=== PATIENT | female | born 1990 | race Caucasian/White ===

== ENCOUNTER 2020-11-21 07:28 | Emergency (ER) | payer OTHER, SELFPAY ==
--- NOTE | ~2020-11-21 | CT_ITS ---
EXAMINATION: CT abdomen pelvis w con DATE: 11/21/2020 10:47 INDICATION: Abdomen pain TECHNIQUE: Computed tomography (CT) of the abdomen and pelvis was performed with 100 cc Omnipaque 350 intravenous contrast. The dose-length product was 502.38 mGy-cm. Automated exposure control and iter ative reconstruction technique were employed. COMPARISON: CT dated 02/04/2018. FINDINGS: Lung bases unremarkable. Heart size normal. No significant pleural or pericardial effusion. Status post cholecystectomy. The liver, spleen, pancreas, adrenal glands and kidneys are unremarkable . Small fat-containing umbilical hernia. There is a tampon in the vagina. Small amount of free fluid in the pelvis. Nonobstructive bowel gas pattern. No acute osseous abnormality. No free air. IMPRESSION: 1. No acute abdominal abnormality. Reviewed, dictated and finalized at location A. [employer]
[2020-11-21 07:33] VITALS: BP 132/82; PULSE 62; RESP 18; TEMP 36.3; O2SAT 98
--- NOTE | 2020-11-21 08:01 | ED.GENADULT ---
HPI - General Adult General Chief complaint: Abdominal Pain Stated complaint: period cramping Time Seen by Provider: 11/21/20 07:42 Source: patient History of Present Illness HPI narrative: Patient is a 30 y/o female complaining of lower abdominal pain starting yesterday. She describes her pain as sharp and rates it as 9/10. There is no pain radiation. She took Tylenol, which did not help. She started her menses 2 days ago. She also has some vomiting and diarrhea. She denies fever and dysuria. Related Data Allergies Allergy/AdvReac Type Severity Reaction Status Date / Time methylprednisolone AdvReac Irritable Verified 11/21/20 07:37 Review of Systems Constitutional: Constitutional: Denies chills, Denies fever(s), Denies headache(s) and Denies weakness Eyes: Eyes: Denies blurry vision ENT: Denies headache(s) and Denies neck pain Cardiovascular: Cardiovascular: Denies chest pain and Denies dyspnea Respiratory: Respiratory: Denies cough and Denies dyspnea Gastrointestinal: Gastrointestinal: Reports as per HPI, Reports abdominal pain, Denies diarrhea, Reports nausea and Reports vomiting Genitourinary: Genitourinary: Reports as per HPI, Reports abnormal vaginal bleeding, Denies hematuria and Denies dysuria Musculoskeletal: Musculoskeletal: Denies back pain and Denies neck pain Neurologic: Denies headache(s) and Denies weakness [facility] Family History Family History Father Family history of diabetes mellitus in first degree relative Grandparent Diabetes mellitus Social History Social History Smoking status: Never smoker Alcohol intake: never Gender identity (if verbalized by the patient): Female Exam Const: General: no acute distress and well developed Orientation/consciousness: oriented to person, oriented to place, oriented to time and patient oriented x3 HENMT: Head: normocephalic Ears: external ears normal General nose exam: Normal external nose present Eyes: General: appearance normal, both eyes and all related structures Conjunctivae: conjunctivae normal Neck: Neck: normal visual inspection and full ROM Chest: Chest palpation & inspection: normal inspection of the chest and no tenderness Resp: Effort & Inspection: normal respiratory effort Auscultation: clear to auscultation bilaterally Cardio: Rate: regular rate Rhythm: regular rhythm GI: GI Palp: No abdominal tenderness and Yes Soft to palpation Skin: General skin exam: normal color and turgor normal Neuro: General: oriented to person, oriented to place, oriented to time and patient oriented x3 Cognition (Neuro): normal cognition Extrem: General: normal to inspection, full ROM and no pedal edema Psych: Appearance: grossly normal Mental Status: mental status grossly normal Affect: normal affect Course Vital Signs Vital signs: Vital Signs Temperature 36.3 C L 11/21/20 07:33 Pulse Rate 62 11/21/20 07:33 Respiratory Rate 18 11/21/20 07:33 Blood Pressure 132/82 11/21/20 07:33 Pulse Oximetry 98 11/21/20 07:33 Temperature 36.3 C L 11/21/20 07:33 Pulse Rate 62 11/21/20 07:33 Respiratory Rate 18 11/21/20 07:33 Blood Pressure 132/82 11/21/20 07:33 Pulse Oximetry 98 11/21/20 07:33 Medical Decision Making Vital Signs Vital Signs: Vital Signs Temperature 36.3 C L 11/21/20 07:33 Pulse Rate 62 11/21/20 07:33 Respiratory Rate 18 11/21/20 07:33 Blood Pressure 132/82 11/21/20 07:33 Pulse Oximetry 98 11/21/20 07:33 Temperature 36.3 C L 11/21/20 07:33 Pulse Rate 62 11/21/20 07:33 Respiratory Rate 18 11/21/20 07:33 Blood Pressure 132/82 11/21/20 07:33 Pulse Oximetry 98 11/21/20 07:33 Lab Data Result diagrams: 11/21/20 08:09 11/21/20 08:56 Labs: Lab Results 11/21/20 11/21/20 11/21/20 Range/Units 08:09 08:31 08:56 WBC 11.7 H
[2020-11-21] MEDS: traMADol HCL (*CRX) 50 MG TABLET PO (08:07)
[2020-11-21 08:24] LABS: Basophils Percent Auto 0.3 % (0.2-1.2); Eosinophils Absolute Auto 0.1 K/mm3 (0-0.3); Hematocrit 39.2 % (37.0-47.0); Hemoglobin 13.2 g/dL (12.0-15.0); Immature Granulocyte Absolute 0.04 K/mm3 (0.00-0.031); Immature Granulocyte Percent A 0.3 % (0-0.5); Lymphocytes Absolute Auto 2.14 K/mm3 (0.9-3.2); Lymphocytes Percent Auto 18.3 % (18.3-44.2); Mean Corpuscular HGB Conc 33.7 g/dl (32-36); Mean Corpuscular Hemoglobin 29.3 pg (26-34); Mean Corpuscular Volume 86.9 fl (80-100); Mean Platelet Volume 8.6 fl (7.4-10.4); Monocytes Absolute Auto 0.5 K/mm3 (0.1-0.6); Monocytes Percent Auto 4.3 % (2.6-8.5); Neutrophils Absolute Auto 8.8 K/mm3 (1.3-6.7); Neutrophils Percent Auto 75.8 % (45.5-73.1); Platelet Count Result 304 k/mm3 (150-375); Red Blood Count 4.51 M/mm3 (4.2-5.4); Red Cell Distribution Width 11.9 % (11.5-14.5); White Blood Count 11.7 K/mm3 (4.5-10.0)
[2020-11-21 08:39] LABS: Add Urine Microscopic? YES; Appearance Urine Clear (Clear); Bilirubin Urine Negative (Negative); Blood Urine 3+ (Negative); Color Urine Yellow (Yellow); Glucose Urine UA Negative (Negative); Ketones Urine Negative (Negative); Leukocyte Esterase Ur Negative LEU/UL (Negative); Mucus Urine Few /lpf; Nitrate Urine Negative (Negative); Protein Urine 1+ mg/dL (Negative); RBC Urine 51-75 /hpf (0-2); Squamous Epithelial Cell Urine Rare /hpf (Few); Urobilinogen Urine Negative mg/dL (<2.0); WBC Urine 0-3 /hpf
[2020-11-21 08:47] LABS: Specific Grav Ur 1.031 (1.001-1.035)
[2020-11-21 09:38] LABS: Anion Gap 8 mmol/L (8-16); Blood Urea Nitrogen 13 mg/dL (7-17); Calcium 8.9 mg/dL (8.4-10.2); Carbon Dioxide 26 mmol/L (22-30); Chloride 104 mmol/L (98-107); Estimated CRCL calculation 100 ml/min; Estimated Glomerular Filt Rate > 60; Glucose 119 mg/dL (65-105); Potassium 3.6 mmol/L (3.4-5.0); Sodium 138 mmol/L (137-145)
[2020-11-21] MEDS: SODIUM CHLORIDE 0.9% IV 1,000 ML 999 ML IV CONT (09:38)
[2020-11-21] MEDS: ONDANSETRON INJ 4 MG/2 ML VIAL IV PUSH (09:38)
[2020-11-21] MEDS: KETOROLAC 30 MG/ML VIAL (*BKC) IV PUSH (09:38)
== END 2020-11-21 12:25 | disposition home or self-care (01) ==
PROVIDERS: Emergency Provider Emergency Medicine
DX: K52.9 Noninfective gastroenteritis and colitis, unspecified (principal); N94.6 Dysmenorrhea, unspecified
CPT/HCPCS: 36415; 74177; 80048; 81001; 81025; 85025; 96361; 96374; 96375; 99284; A9270; J1885; J2405; J7030; Q9967

== ENCOUNTER → 2021-04-05 14:28 | Outpatient (CLI) | payer OTHER, SELFPAY ==
--- NOTE | ~2021-04-05 | MR_ITS ---
EXAMINATION: MR pituitary wo/w con DATE: 04/05/2021 15:35 INDICATION: Hyperprolactinemia. TECHNIQUE: Magnetic resonance imaging (MRI) of the brain and brainstem was performed without with 15 mL MultiHance intravenous contrast. Whole-brain sequences included sagittal T1-weighted FSE, axial di ffusion-weighted FS EPI, axial T2*-weighted GRE, axial T2-weighted FLAIR Propeller, and axial T2-weig hted Propeller. Small iolwp-ek-bpix sequences included sagittal and coronal T1-weighted FSE centered at the pituitary. Postcontrast sequences included small ebjzy-xd-ienz coronal T1-weighted FSE in a t kelly course and sagittal T1-weighted FSE and whole-brain axial T1-weighted FSE. Apparent diffusion boone fficient (ADC) maps were created. COMPARISON: Head CT 07/30/2014 FINDINGS: The pituitary is normal in size with height of 5 mm and concave superior margin. There is n o intracranial hemorrhage, acute infarction, or abnormal intracranial mass lesion. The ventricles are normal in size. The paranasal sinuses are clear. There is a trace left mastoid effusion. The orbits are normal. IMPRESSION: 1. Normal brain. Normal pituitary. Reviewed, dictated and finalized at location A.
[2021-04-05 14:58] LABS: Estimated Glomerular Filt Rate > 60
== END ==
PROVIDERS: Visit Provider Obstetrics & Gynecology
DX: R94.7 Abnormal results of other endocrine function studies (principal)
CPT/HCPCS: 70553; A9577

== ENCOUNTER 2021-07-14 07:51 | Emergency (ER) | payer OTHER, SELFPAY ==
--- NOTE | ~2021-07-14 | US_ITS ---
EXAMINATION: US OB <= 14 weeks fetus DATE: 07/14/2021 11:59 INDICATION: Vaginal bleeding during first trimester TECHNIQUE: Real-time pelvic transabdominal and transvaginal ultrasound was performed. COMPARISON: None. FINDINGS: The uterus measures 14.0 x 7.3 x 8.8 cm. There is an intrauterine gestational sac. There i s a 2.8 x 1.5 x 1.3 cm hypoechoic area adjacent to the gestational sac. There is a 4.6 x 3.3 x 5.2 cm isoechoic area of the posterior uterine body, likely an intramural fibroid. A yolk sac is identified . heart motion is identified measuring 173 beats per minute (bpm) by M-mode Doppler. The crown rump length measures 2.5 cm , which correlates with an estimated gestational age of 9 weeks and 2 day(s) (+/-) 6 day(s). The ovaries are not visualized however no adnexal abnormality is seen. There is no free fluid in the pelvis. IMPRESSION: 1. Live intrauterine with an estimated gestational age of 9 weeks and 2 day(s) (+/-) 6 day( s) and an estimated delivery date of 02/14/2022. 2. Small subchronic hematoma. Reviewed, dictated and finalized at location B. IMPRESSION: 1. Live intrauterine with an estimated gestational age of 9 weeks and 2 day(s) (+/-) 6 day(s) and an estimated delivery date of 02/14/2022. 2. Small subchronic hematoma.
[2021-07-14 08:06] VITALS: BP 121/80; PULSE 64; RESP 16; TEMP 36.9; O2SAT 100
[2021-07-14 09:09] LABS: Basophils Percent Auto 0.4 % (0.2-1.2); Eosinophils Absolute Auto 0.1 K/mm3 (0-0.3); Eosinophils Percent Auto 0.9 % (0-4.4); Hematocrit 38.9 % (37.0-47.0); Hemoglobin 13.2 g/dL (12.0-15.0); Immature Granulocyte Absolute 0.03 K/mm3 (0.00-0.031); Immature Granulocyte Percent A 0.3 % (0-0.5); Lymphocytes Absolute Auto 1.74 K/mm3 (0.9-3.2); Lymphocytes Percent Auto 17.3 % (18.3-44.2); Mean Corpuscular HGB Conc 33.9 g/dl (32-36); Mean Corpuscular Hemoglobin 29.7 pg (26-34); Mean Corpuscular Volume 87.4 fl (80-100); Mean Platelet Volume 8.1 fl (7.4-10.4); Monocytes Absolute Auto 0.5 K/mm3 (0.1-0.6); Monocytes Percent Auto 4.9 % (2.6-8.5); Neutrophils Absolute Auto 7.7 K/mm3 (1.3-6.7); Neutrophils Percent Auto 76.2 % (45.5-73.1); Platelet Count Result 264 k/mm3 (150-375); Red Blood Count 4.45 M/mm3 (4.2-5.4); Red Cell Distribution Width 12.1 % (11.5-14.5); White Blood Count 10.1 K/mm3 (4.5-10.0)
--- NOTE | 2021-07-14 12:37 | ED.GENADULT ---
HPI - General Adult General Chief complaint: Vaginal Bleeding Stated complaint: 9 weeks spotting and cramping Time Seen by Provider: 07/14/21 08:50 History of Present Illness HPI narrative: Patient is a 30-year-old female who presents ER with concern for vaginal bleeding. She woke up this morning and wiped herself after using the bathroom and noticed some brown discharge that she thinks is blood. No bright red bleeding. Has had a little bit of abdominal cramping for last couple days. No fevers or chills or sweats. G1, P0 at [address] Shirley. Had an ultrasound demonstrating IUP last week. Unknown blood type. Related Data Allergies Allergy/AdvReac Type Severity Reaction Status Date / Time methylprednisolone AdvReac Irritable Verified 07/14/21 08:11 Review of Systems Review of Systems: All systems reviewed & are unremarkable except as noted in HPI and below Constitutional: Constitutional: Denies chills and Denies fever(s) ENT: Denies nasal congestion and Denies sore throat Gastrointestinal: Gastrointestinal: Reports abdominal pain, Denies diarrhea, Denies nausea and Denies vomiting Genitourinary: Genitourinary: Reports abnormal vaginal bleeding, Denies nocturia and Denies dysuria Musculoskeletal: Musculoskeletal: Denies myalgias and Denies muscle cramps PMFSH Past Medical History Medical History (Updated 07/14/21 @ 13:05 by Filemon Reaves MD) Healthy female adult Surgical History Surgical History (Updated 07/14/21 @ 13:05 by Filemon Reaves MD) No history of previous surgery Family History Family History Father Family history of diabetes mellitus in first degree relative Grandparent Diabetes mellitus Social History Social History Smoking status: Never smoker Alcohol intake: never Gender identity (if verbalized by the patient): Female Exam Narrative: GENERAL: Well-appearing, well-nourished, and in no acute distress. HEAD: Normocephalic, atraumatic. CHEST: Clear to auscultation. No respiratory distress. HEART: Regular rate and rhythm. Normal peripheral pulses. ABDOMEN: Soft, nontender, nondistended. : Normal external genitalia, physiologic discharge with old blood within the vaginal vault, cervix closed without active bleeding. EXTREMITIES: Normal range of motion. No edema. SKIN: Warm, dry, no rash. NEURO: Alert and oriented x3. PSYCH: Normal mood and affect. Course Course Emergency Course: Discussed case with Dr. Ivory who is on-call for Dr. Shirley. Bleeding precautions and close follow-up. Patient verbalized understanding of diagnosis and treatment plan. Vital Signs Vital signs: Vital Signs Temperature 98.4 F 07/14/21 08:06 Pulse Rate 64 07/14/21 08:06 Respiratory Rate 16 07/14/21 08:06 Blood Pressure 121/80 07/14/21 08:06 Pulse Oximetry 100 07/14/21 08:06 Temperature 98.4 F 07/14/21 08:06 Pulse Rate 64 07/14/21 08:06 Respiratory Rate 16 07/14/21 08:06 Blood Pressure 121/80 07/14/21 08:06 Pulse Oximetry 100 07/14/21 08:06 Medical Decision Making Vital Signs Vital Signs: Vital Signs Temperature 98.4 F 07/14/21 08:06 Pulse Rate 64 07/14/21 08:06 Respiratory Rate 16 07/14/21 08:06 Blood Pressure 121/80 07/14/21 08:06 Pulse Oximetry 100 07/14/21 08:06 Temperature 98.4 F 07/14/21 08:06 Pulse Rate 64 07/14/21 08:06 Respiratory Rate 16 07/14/21 08:06 Blood Pressure 121/80 07/14/21 08:06 Pulse Oximetry 100 07/14/21 08:06 Lab Data Result diagrams: 07/14/21 08:57 Labs: Lab Results 07/14/21 07/14/21 07/14/21 Range/Units 08:57 08:57 08:58 WBC 10.1 H (4.5-10.0) K/mm3 RBC 4.45 (4.2-5.4) M/mm3 Hgb 13.2 (12.0-15.0) g/dL Hct 38.9 (37.0-47.0) % MCV 87.4 (80-100) fl MCH 29.7 (26-34) pg MCHC 33.9 (32-36) g/dl RDW 1
[2021-07-14 15:00] VITALS: BP 121/70; PULSE 70; RESP 18; O2SAT 98
== END 2021-07-14 15:01 | disposition home or self-care (01) ==
PROVIDERS: Emergency Provider Emergency Medicine
DX: O46.8X1 Other antepartum hemorrhage, first trimester (principal); Z3A.09 9 weeks gestation of pregnancy
CPT/HCPCS: 36415; 76801; 84702; 85025; 85461; 99284

== ENCOUNTER 2021-12-17 06:58 | Outpatient (CLI) | payer OTHER, MEDICAID, SELFPAY ==
[2021-12-17 08:17] LABS: Basophils Percent Auto 0.2 % (0.2-1.2); Eosinophils Absolute Auto 0.1 K/mm3 (0-0.3); Eosinophils Percent Auto 0.8 % (0-4.4); Hematocrit 33.1 % (37.0-47.0); Hemoglobin 11.3 g/dL (12.0-15.0); Immature Granulocyte Absolute 0.07 K/mm3 (0.00-0.031); Immature Granulocyte Percent A 0.5 % (0-0.5); Lymphocytes Absolute Auto 1.71 K/mm3 (0.9-3.2); Lymphocytes Percent Auto 12.9 % (18.3-44.2); Mean Corpuscular HGB Conc 34.1 g/dl (32-36); Mean Corpuscular Hemoglobin 29.6 pg (26-34); Mean Corpuscular Volume 86.6 fl (80-100); Mean Platelet Volume 8.5 fl (7.4-10.4); Monocytes Absolute Auto 0.7 K/mm3 (0.1-0.6); Monocytes Percent Auto 5.5 % (2.6-8.5); Neutrophils Absolute Auto 10.6 K/mm3 (1.3-6.7); Neutrophils Percent Auto 80.1 % (45.5-73.1); Platelet Count Result 247 k/mm3 (150-375); Red Blood Count 3.82 M/mm3 (4.2-5.4); Red Cell Distribution Width 11.9 % (11.5-14.5); White Blood Count 13.2 K/mm3 (4.5-10.0)
[2021-12-17 08:27] LABS: Glucose 1 Hour PP 50gm Dose 155 mg/dL
[2021-12-17 09:08] LABS: HIV 1/2 Ab P24 Ag Result Negative (Negative)
== END 2021-12-17 06:59 | disposition home or self-care (01) ==
LOC: ANHLAB 07:00
PROVIDERS: Visit Provider Obstetrics & Gynecology
DX: Z34.90 Encounter for supervision of normal pregnancy, unspecified, unspecified trimester (principal); Z3A.00 Weeks of gestation of pregnancy not specified
CPT/HCPCS: 36415; 82947; 85025; 86703; G0432

== ENCOUNTER 2021-12-27 10:29 | Outpatient (CLI) | payer OTHER, MEDICAID, SELFPAY ==
[2021-12-27 10:56] LABS: Glucose Fasting Gestational 81 mg/dL (>/=95)
[2021-12-27 12:59] LABS: Glucose 1 Hour Gest 150 mg/dL (>/=180)
[2021-12-27 13:51] LABS: Glucose 2 Hour Gest 119 mg/dL (>/= 155)
[2021-12-27 14:54] LABS: Glucose 3 Hour Gest 126 mg/dL (>/=140)
== END 2021-12-27 10:30 | disposition home or self-care (01) ==
LOC: ANHLAB 10:31
PROVIDERS: Visit Provider Obstetrics & Gynecology
DX: R73.09 Other abnormal glucose (principal)
CPT/HCPCS: 36415; 82951; 82952

== ENCOUNTER 2022-01-18 15:56 | Outpatient (CLI) | payer OTHER, MEDICAID, SELFPAY ==
--- NOTE | ~2022-01-18 | US_ITS ---
US OB limited w BPP DATE: 01/18/2022 17:35 INDICATION: Possible amniotic fluid leak. Assess JUAN PABLO. TECHNIQUE: Real-time imaging and Doppler analysis COMPARISON: 01/16/2022 obstetrical ultrasound Limited examination FINDINGS: Live borrego intrauterine gestation in longitudinal lie, vertex presentation. heart rate of 133 bpm. Anterior placenta. Amniotic fluid index measures 20.2 cm. (5th percentile JUAN PABLO 7.7 cm, 95th percentile JUAN PABLO: Is 24.9 cm.) BIOPHYSICAL PROFILE reported by carpet cleaning technician: breathin out of 2 movement: 2 out of 2 tone: 2 out of 2 Amniotic fluid pocket: 2 out of 2 Total score: 8 out of 8 IMPRESSION: Normal JUAN PABLO of 20.2 cm Normal biophysical profile score of 8 out of 8 Reviewed, dictated and finalized at Location A. Reviewed, dictated and finalized at location A.
[2022-01-18 17:17] VITALS: BMI 36.7
[2022-01-18 18:08] VITALS: BP 126/79; PULSE 80
== END 2022-01-18 18:08 | disposition home or self-care (01) ==
LOC: ANHOBOP 16:39 → ANHOBPP 16:40
PROVIDERS: Visit Provider Obstetrics & Gynecology
DX: O41.8X31 Other specified disorders of amniotic fluid and membranes, third trimester, fetus 1 (principal); Z3A.36 36 weeks gestation of pregnancy
CPT/HCPCS: 59025; 76815; 76819; 84112; 99199

== ENCOUNTER 2022-01-20 08:45 | Outpatient (CLI) | payer OTHER, MEDICAID, SELFPAY ==
[2022-01-20 09:01] VITALS: BP 126/82; PULSE 98
[2022-01-20 09:15] VITALS: BP 119/80; PULSE 75
[2022-01-20 09:27] VITALS: TEMP 36.9
[2022-01-20 09:30] VITALS: BP 119/80; BP 125/84; PULSE 76; PULSE 93
--- NOTE | 2022-01-20 10:06 | PM.OBTRLD ---
OB - Triage/Final Diagnosis Visit Information Comments/Additional reasons for admission: I have assessed the risk for this patient, Allyssa Russell, and determined that she would benefit from observation care. Evaluation Vital signs: Vital Signs - 24 hr 01/20/22 09:30 Pulse Rate 93 Blood Pressure [Left Arm] 119/80 Final Diagnosis (1) Vaginal discharge during : Code(s): O26.899 - Other specified related conditions, unspecified trimester; N89.8 - Other specified noninflammatory disorders of vagina Status: Acute
== END 2022-01-20 09:35 | disposition home or self-care (01) ==
LOC: ANHOBOP 08:49 → ANHOBPP 08:50
PROVIDERS: Visit Provider Obstetrics & Gynecology
DX: O26.899 Other specified pregnancy related conditions, unspecified trimester (principal); Z3A.00 Weeks of gestation of pregnancy not specified
CPT/HCPCS: 59025; 84112; 99199

== ENCOUNTER 2022-01-25 20:48 | Inpatient (IN) | payer OTHER, MEDICAID, SELFPAY ==
[2022-01-25] VITALS (36 sets, daily range): BP systolic 112–143; BP diastolic 66–92; PULSE 69–94; TEMP 37; O2SAT 97–100; BMI 37.3
--- OUTSIDE RECORDS SUMMARY | 2022-01-25 21:04 | XMS_ITS ---
:1990 Author Care Team Providers Name Role Phone Aneesh Shirley Primary Care Provider Unavailable Allergies Code Code System Name Reaction Severity Status Onset 8640 RxNorm Prednisone Dizziness ? Active ? Nausea ? Active ? Vomiting ? Active ? Medications Name Status Start Date Stop Date ? ? clomiphene citrate 50 mg tablet Completed ? 07/01/2021 dicyclomine 10 mg capsule Completed ? 2020 TAKE ONE CAPSULE BY MOUTH FOUR TIMES DAILY NEEDED famotidine 20 mg tablet Active ? Not avai lable Take 1 tablet every day by oral route. nitrofurantoin monohydrate/macrocrystals 100 mg capsule Complete d ? 03/11/2021 TK 1 C PO Q 12 H FOR 5 DAYS ondansetron HCl 4 mg tablet Completed ? 09/05 TAKE 1 TABLET BY MOUTH TWICE DAILY NEEDED prednisone 20 mg tablet Completed ? 03/11/20 21 triamcinolone acetonide 0.1 % topical cream Completed ? 03/11/2021 APPLY TO AFFECTED AREA BID Unisom (doxylamine) 25 mg tablet Completed ? 09/21/2021 Take 1 tablet every day by oral route at dinner. Vitamin B-6 25 mg tablet Completed ? 021 TAKE 1 TABLET BY MOUTH THREE TIMES DAILY Notes: vitamin D3/ pnv Problems Name Status Onset Date Source ? Active 07/12/2021 ? Procedures Date Name Performed by ? ? Cholecystectomy Information not avai labreno Notes: 2017
[2022-01-25] MEDS: LACTATED RINGERS 1,000 ML 125 ML IV CONT ×2 (21:30→22:29)
--- NOTE | 2022-01-25 21:45 | PM.IMHP ---
H&P: HPI History of Present Illness Date/Time: 01/25/22 21:21 Allyssa is a 31yo @ 37.2wks (TYREE 02/13/22) who presented to L&D with rupture of membranes, clear @ 1900. ROM+ was positive. She was found to be 3.5/90/-1 and trae ~ q3 minutes. She reported good movements. No vaginal bleeding. Her has been complicated by: - Elevated glucola; normal 3hr OGTT - Mild anemia on iron Chief Complaint: leakage of fluid Review of Systems Review of Systems: All systems reviewed & are unremarkable except as noted in HPI and below (HPI) [facility] Past Medical History Medical History Cholecystectomy planned Healthy female adult Surgical History Surgical History No history of previous surgery Family History Family History Father Family history of diabetes mellitus in first degree relative Grandparent Diabetes mellitus Grandparent Diabetes mellitus Grandparent Hypertension Skin cancer Grandparent No problems noted. Social History Social History Smoking status: Never smoker Second hand tobacco smoke exposure: No Alcohol intake: never Substance use: never Gender identity (if verbalized by the patient): Female Sexual Orientation (if Verbalized by the Patient): Straight or Heterosexual Spiritual care concerns: No Meds Home Medications and Allergies Home Medications Medication Instructions Recorded Confirmed Type PNV cmb#95-ferrous fumarate-FA 1 tablet PO DAILY 01/18/22 01/18/22 History [] ferrous sulfate 325 mg PO DAILY 01/18/22 01/18/22 History Allergies Allergy/AdvReac Type Severity Reaction Status Date / Time methylprednisolone AdvReac Irritable Verified 01/18/22 15:17 Exam Const: General: cooperative, healthy appearing, comfortable and in distress (with contractions) Resp: Effort & Inspection: normal respiratory effort Cardio: Rate: regular rate GI: GI Palp: No abdominal tenderness and Yes Soft to palpation : Other: FHT's: 140's/mod man/ + accels/ no decels - cat 1 TOCO: ctx's q 3min Cervix: 3.5/90/-1 Membranes: SROM, clear @ 1900 on 01/25/22 Presentation: cephalic Psych: Appearance: grossly normal Affect: normal affect Attitude: cooperative Assessment and Plan Assessment and plan (1) Active labor at term: Status: Acute (2) : Qualifiers: Weeks of gestation: 37 weeks Qualified Code(s): Z3A.37 - 37 weeks gestation of Code(s): Z34.90 - Encounter for supervision of normal , unspecified, unspecified trimester Status: Acute Additional Plan - Admit to L&D - Pitocin augmentation if no change in cervix over 4 hours or contractions space out - Continuous monitoring; currently reassuring - Anesthesia consult PRN pain - GBS negative
--- NOTE | 2022-01-25 21:46 | WPDHPUPDATE1 ---
History and Physical Update Update Date/Time: 01/25/22 21:46 History and Physical has been reviewed, including an updated exam of the patient. There are NO changes in the patient's condition. Risks, benefits, and alternatives have been discussed and questions answered. Patient agrees to proceed with procedure.
--- NOTE | 2022-01-25 21:53 | LDADM ---
This patient, Allyssa Russell, was admitted to Labor/Delivery/Recovery 106 on 01/25/22 at 20:48. Plans for labor, pain management and were discussed with patient. Patient/family oriented to hospital policies and general routines including ID bracelet, bed and alarms, visiting hours, pain management, procedures, bathroom and other care routines, personal items, smoking policy, room service/diet and guest tray routines, infant security routines, and visiting hours. Patient/Family are encouraged to report perceived risks to care and to ask questions if they do not understand what they are told or what they should do. See OBIX for further documentation.
[2022-01-25 21:55] LABS: Basophils Percent Auto 0.2 % (0.2-1.2); Eosinophils Absolute Auto 0.1 K/mm3 (0-0.3); Eosinophils Percent Auto 0.5 % (0-4.4); Hematocrit 34.1 % (37.0-47.0); Hemoglobin 11.4 g/dL (12.0-15.0); Immature Granulocyte Absolute 0.08 K/mm3 (0.00-0.031); Immature Granulocyte Percent A 0.7 % (0-0.5); Lymphocytes Absolute Auto 2.08 K/mm3 (0.9-3.2); Mean Corpuscular HGB Conc 33.4 g/dl (32-36); Mean Corpuscular Hemoglobin 28.4 pg (26-34); Mean Platelet Volume 9.1 fl (7.4-10.4); Monocytes Absolute Auto 0.6 K/mm3 (0.1-0.6); Monocytes Percent Auto 5.1 % (2.6-8.5); Neutrophils Absolute Auto 9.4 K/mm3 (1.3-6.7); Neutrophils Percent Auto 76.5 % (45.5-73.1); Platelet Count Result 279 k/mm3 (150-375); Red Blood Count 4.01 M/mm3 (4.2-5.4); Red Cell Distribution Width 13.1 % (11.5-14.5); White Blood Count 12.3 K/mm3 (4.5-10.0)
--- NOTE | 2022-01-25 22:29 | WPDANESEPP ---
Anes - Eval Pre Procedure Procedure: labor epidural Date/Time: 01/25/22 22:29 Surgeon: sherry Pre Op Diagnosis: Leaking fluid Patient Data Age: 31 Gender: F Height: 1.6 m Weight: 95.5 kg Last Vital Signs Temp 37.0 C 01/25/22 21:30 Pulse 70 01/25/22 22:16 BP 139/78 01/25/22 22:16 Pulse Ox 99 01/25/22 22:27 Allergies Allergy/AdvReac Type Severity Reaction Status Date / Time methylprednisolone AdvReac Irritable Verified 01/18/22 15:17 Home Medications Medication Instructions Recorded Confirmed Type PNV cmb#95-ferrous fumarate-FA 1 tablet PO DAILY 01/18/22 01/18/22 History [] ferrous sulfate 325 mg PO DAILY 01/18/22 01/18/22 History Laboratory Tests 01/25/22 01/25/22 21:47 21:47 WBC 12.3 K/mm3 H K/mm3 (4.5-10.0) RBC 4.01 M/mm3 L M/mm3 (4.2-5.4) Hgb 11.4 g/dL L g/dL (12.0-15.0) Hct 34.1 % L % (37.0-47.0) MCV 85.0 fl fl (80-100) MCH 28.4 pg pg (26-34) MCHC 33.4 g/dl g/dl (32-36) RDW 13.1 % % (11.5-14.5) Plt Count 279 k/mm3 k/mm3 (150-375) MPV 9.1 fl fl (7.4-10.4) Immature Gran % (Auto) 0.7 % H % (0-0.5) Neut % (Auto) 76.5 % H % (45.5-73.1) Lymph % (Auto) 17.0 % L % (18.3-44.2) Sequoyah % (Auto) 5.1 % % (2.6-8.5) Eos % (Auto) 0.5 % % (0-4.4) Baso % (Auto) 0.2 % % (0.2-1.2) Lymph # (Auto) 2.08 K/mm3 K/mm3 (0.9-3.2) Sequoyah # (Auto) 0.6 K/mm3 K/mm3 (0.1-0.6) Eos # (Auto) 0.1 K/mm3 K/mm3 (0-0.3) Baso # (Auto) 0.0 K/mm3 K/mm3 (0.0-0.1) Abs Immat Gran (auto) 0.08 K/mm3 H K/mm3 (0.00-0.031) Absolute Neuts (auto) 9.4 K/mm3 H K/mm3 (1.3-6.7) Absolute Nucleated RBC 0.0 K/mm3 K/mm3 (0.0-0.012) Nucleated RBC % 0.0 % % (0.0-0.2) RPR Pending Patient hx anesthesia problems: none Family hx anesthesia problems: none Results Review: All pre-operative results and documents have been reviewed as part of the pre-operative evaluation. [facility] Past Medical History Medical History Cholecystectomy planned Healthy female adult Surgical History Surgical History No history of previous surgery Family History Family History Father Family history of diabetes mellitus in first degree relative Grandparent Diabetes mellitus Grandparent Diabetes mellitus Grandparent Hypertension Skin cancer Grandparent No problems noted. Social History Social History Smoking status: Never smoker Second hand tobacco smoke exposure: No Alcohol intake: never Substance use: never Gender identity (if verbalized by the patient): Female Sexual Orientation (if Verbalized by the Patient): Straight or Heterosexual Spiritual care concerns: No Exam Day of Procedure 01/25/22 22:29
[2022-01-26] VITALS (141 sets, daily range): BP systolic 104–150; BP diastolic 56–95; PULSE 58–137; RESP 16–20; TEMP 36.5–37.6; O2SAT 96–100
[2022-01-26] MEDS: OXYTOCIN 30 UNITS/NS 500 ML 30 UNITS/500 ML BAG IV CONT (02:08)
[2022-01-26] MEDS: FAMOTIDINE 20 MG/2 ML VIAL IV PUSH (02:15)
[2022-01-26] MEDS: ONDANSETRON INJ 4 MG/2 ML VIAL IV PUSH (02:56)
[2022-01-26] MEDS: LACTATED RINGERS 1,000 ML 125 ML IV CONT (04:19)
--- NOTE | 2022-01-26 06:43 | PM.OBPNLAB ---
Pain Control Date/time seen: 01/26/22 06:43 Pain control: epidural Pelvic Exam Dilation (cm): 9 Effacement (%): 100 station: 0 Amniotic membrane status: Ruptured (SROM, clear 1700 on 01/25/22) Contractions Monitor mode: External Contraction frequency: 2 Status status: Category l Assessment and Plan Pitocin rate (mU/min): 8 Assessment: active labor Plan: continuous present management
[2022-01-26] MEDS: OXYTOCIN 30 UNITS/NS 500 ML 30 UNITS/500 ML BAG 125 UNITS IV CONT (09:12)
[2022-01-26] MEDS: BENZOCAINE 20% AER SPR (*SP) 56 GM CAN 1 SPRAY TOPICAL (10:56)
[2022-01-26] MEDS: WITCH HAZEL 40 PADS 1 PAD TOPICAL (10:56)
[2022-01-26] MEDS: IBUPROFEN 600 MG TABLET PO ×3 (10:56→23:50)
--- NOTE | 2022-01-26 11:05 | PC.NURSE ---
Patient transferred to post room #290 per wheelchair. Support person present. Oriented to unit, room, information board, rooming in, admission packet and security measures. Patient verbalizes understanding.
[2022-01-26 11:17] LABS: Rapid Plasma Reagin Non-Reactive (NonReactive)
--- NOTE | 2022-01-26 12:21 | P.PCNOB_ITS ---
OB - Delivery Note Procedure Delivery date: 01/26/22 Delivery augmentation: Pitocin Delivery monitor: External FHT and External Uterine Route of delivery: Laceration Description: Perineal - 1st Degree Delivery repair: vicryl Specimen: No Quantitative Blood Loss (ml): 200 Anesthesia type: Epidural Disposition: Floor Pioneer Baby Date of : 01/26/22 Time of : 08:33 Weeks of gestation at delivery: 37 (.3) Infant gender: Female Weight (pounds): 7 Weight (ounces): 0 presentation: vertex position: Left Occiput Anterior Placenta delivery description: Expressed Cord Vessel Description: 3 Vessels and Delayed Cord Clamping score one minute: 9 score five minutes: 9 Narrative: Erika progressed to complete dilation with strong desire to push. She pushed for approximately 20 minutes with good maternal effort. She delivered the 's head over intact perineum. No nuchal cord was palpated. She easily delivered the 's shoulders and body without complications. The infant was immediately placed skin to skin and had spontaneous cry after stimulation and bulb suctioning. Delayed cord clamping was performed. The umbilical cord was then clamped and cut. A segment of the cord was collected for cord gases. The remaining cord blood was collected for typing. With Pitocin running and gentle downward traction on the cord, the placenta delivered without complications. Minimal bleeding was noted. She was examined and a first-degree perineal laceration was noted, as well as a small tear in the hymen. Two separate figure of 8 stitches were placed using 3-0 Vicryl and good hemostasis was noted. Small amount of bleeding was noted and bimanual massage was performed where uterine sweep noted small amount of membranes which were removed without difficulty. Uterus was then felt to be very firm with minimal bleeding. Sponge, lap, instrument, and needle counts were correct at the end the proc edure. Mom and baby remained in the birthing suite skin to skin in a stable condition. [facility] Delivery Billing Delivery Delivery: Delivery Charge
--- NOTE | 2022-01-26 15:04 | PC.NURSE ---
[id number] Introductions made to the parents and consulted with patient to assess needs related to . Mother led conversation with her experience with feeding baby so far and her desire to breastfeed her . Father of baby is supportive. Mother works well with her infant and encouraged to position her infant independently. Reviewed good handwashing when working with infant, breast, nipples and how to protect the nipples with a deep latch. Encouraged understanding the benefits of skin to skin, responding to feeding cues to breastfeed on demand, frequencies of feeding 8-12 times in 24 hours (approximately 2-3 hours), duration of feedings, milk production, intake/output feeding sheet and signs of adequate intake. Discussed stimulating with skin to skin, hand expressing colostrum, touch and talking to to encourage eating at the breast. Reviewed positioning and alignment, supporting breast, off-centered (asymmetrical latch) and leading with the chin with big open wide gape. latched optimally to the right breast in football position. was able to maintain latch without discmfort to mother. Education given to mother of how to visualize suck/swallow ratios and stimulate infant to drink at the breast. Mother detached infant after 20 min to practice offering the other breast, latch and positioning. Infant latched optimally to the left breast in the football position. was able to maintain latch without discomfort to mother. Nipple care reviewed with optimally latching and positioning, comfort and healing with warm, wet washcloth to rinse breast and leave to air-dry, colostrum may be left on nipples to dry but have clean hands when touching the nipple/breast. Resources used to facilitate learning were used from the visual handouts/ tool/mom and baby guide. Mother voiced understanding responding to feeding cues, may need to stimulating infant approximately 2-3 hours from the start of the last feeding, calling for assistance if the infant does not latch or there discomfort . Reported to primary RN.
--- NOTE | 2022-01-26 15:28 | PC.NURSE ---
[id number] Consulted with patient to assess needs related to . Mother led conversation with her experience with feeding baby so far. Mother works well with her and has been effectively working with . Encouraged understanding the benefits of skin to skin, responding to feeding cues, frequencies of feeding 8-12 times in 24 hours (approximately 2-3 hours), duration of feedings, milk production, intake/output feeding sheet and signs of adequate intake. Discussed stimulating with skin to skin, hand expressing colostrum, touch and talking to infant to encourage eating at the breast. Reviewed positioning and alignment, supporting breast, off-centered (asymmetrical latch) and leading with the chin with big open wide gape. After a few attempts with organizing with skin to skin touch between the breast the settled down and latched optimally to the right breast in football position. Education given to mother of how to visualize suck/swallow ratios and drinking at the breast. was able to maintain latch without discomfort to mother. Encouraged mother to continue working well with infant in guiding her to breastfeed. Resources used to facilitate learning were used from the visual handout/ tool/mom and baby guide. Parents voiced understanding responding to feeding cues for on demand feedings, the need to possibly stimulate approximately 2-3 hours from the start of the last feeding with unwrapping, skin to skin and colostrum feeding, and to call for assistance if the does not latch or if there is discomfort . Reported to primary RN.
[2022-01-26] MEDS: DOCUSATE SODIUM 100 MG CAPSULE PO (17:30)
[2022-01-26] MEDS: TETANUS,DIPHTHERIA,AC PERTUSSIS ADULT (0.5 ML) BOOSTRIX IM (20:02)
[2022-01-27 03:50] VITALS: BP 127/78; PULSE 72; RESP 16; TEMP 36.8; O2SAT 97
[2022-01-27] MEDS: ACETAMINOPHEN 325 MG TABLET 650 MG PO (04:01)
[2022-01-27 04:23] LABS: Hemoglobin 11.1 g/dL (12.0-15.0)
[2022-01-27 07:45] VITALS: BP 130/79; PULSE 70; RESP 24; TEMP 37.2; O2SAT 99
[2022-01-27] MEDS: MULTIVIT/MIN/PREN/FOL AC/IRON TABLET 1 TAB PO (08:07)
[2022-01-27] MEDS: DOCUSATE SODIUM 100 MG CAPSULE PO (08:07)
[2022-01-27] MEDS: IBUPROFEN 600 MG TABLET PO ×3 (08:07→23:08)
--- NOTE | 2022-01-27 09:08 | PM.OBPNVD ---
OB - PN: Subj Subjective Date/time seen: 01/27/22 09:08 Narrative: PPD#1 Allyssa reports doing well today. Her bleeding is vamp creaser. Her pain is controlled. She is tolerating regular diet, voiding, passing gas, and ambulating without issues. She is breast feeding. OB - PN: Obj Data Labs CBC & Chem 7: 01/27/22 03:59 Labs: Laboratory Results - last 24 hr 01/25/22 01/27/22 21:47 03:59 Hgb 11.1 L Hct 35.0 L RPR Non-reactive OB - PN A/P Assessment and Plan (1) Normal vaginal delivery of first : Code(s): O80 - Encounter for full-term uncomplicated delivery Status: Acute Plan day: 1 Plan: routine care Comments: - discharge home tomorrow - consult - Pelvic rest; take meds as prescribed - ER return precautions: fever, n/v/abd pain, bleeding, HTN Time Spent With Patient Time: Total time spent is greater than 50% in coordination of care (as documented) at patient's floor/unit and/or counseling patient: Review of Systems Constitutional: Constitutional: Denies chills, Denies fever(s) and Denies headache(s) Eyes: Eyes: Denies change in vision ENT: Denies dizziness and Denies headache(s) Cardiovascular: Cardiovascular: Denies chest pain, Denies palpitations and Denies dyspnea Respiratory: Respiratory: Denies cough and Denies dyspnea Gastrointestinal: Gastrointestinal: Denies nausea and Denies vomiting Neurologic: Denies dizziness and Denies headache(s) Endocrine: Endocrine: Denies palpitations Exam Const: General: cooperative, comfortable and no acute distress Orientation/consciousness: patient oriented x3 Resp: Effort & Inspection: normal respiratory effort Auscultation: clear to auscultation bilaterally Cardio: Rate: regular rate GI: Inspection: non-distended GI Palp: No abdominal tenderness and Yes Soft to palpation Auscultation: normal bowel sounds : Other: fundus firm Skin: General skin exam: normal color Neuro: General: patient oriented x3 Extrem: General: normal to inspection Psych: Appearance: grossly normal Affect: normal affect Attitude: cooperative
--- NOTE | 2022-01-27 12:30 | PC.NURSE ---
[id number] Consulted with patient to see how has been going so far and mother led the conversation. Reviewed infant feeding cues, frequencies, duration of feedings, feeding elimination flow sheet, and signs of adequate intake. Assisted with infant to the right breast in football position. Reviewed positioning/alignment, holding breast and asymmetrical latch on. was able to latch correctly. Infant nursed eagerly, with steady draws and occasional swallowing noted. Reviewed signs of a correct latch, effective nursing and suck swallow ratio. was able to maintain latch without discomfort to mother. Nipple care with good positioning along with optimal latch reviewed. Reinforced education regarding responsive when feeding cues are visualized and to stimulate with unwrapping, undressing, checking diaper, and placing skin to skin if it has been three hours from start of last feeding. Hand expression and nipple stretching encouraged for breast focus and milk production. Information reviewed with assistance with visual handouts/ mom and baby guide. Mother voiced understanding to call out for RN assistance if she is unable to latch for feeding or she has discomfort with nursing.
--- NOTE | 2022-01-27 14:00 | PC.NURSE ---
Patient viewed the discharge video Mother & Baby Care, The First Two Weeks . Patient was given the opportunity and encouraged to ask questions. Patient verbalized understanding of information shared and has been given the mother/baby guide for home reference.
--- NOTE | 2022-01-27 15:07 | WPDANLDPN2 ---
Anes-Prog Note L&D Date/Time: 01/27/22 15:07 Comfortable throughout: labor and delivery Neuraxial method: epidural Epidural/Spinal procedure site: clean & non-tender Neuro status: Neuro function grossly intact. Cardiovascular status: normal Respiratory status: normal Airway patency: baseline Mental status: baseline Post-Op hydration status: normal Vital Signs: Last Vital Signs Temp 98.9 F 01/27/22 07:45 Pulse 70 01/27/22 07:45 Resp 24 H 01/27/22 07:45 BP 130/79 01/27/22 07:45 Pulse Ox 99 01/27/22 07:45 Pain score (VAS): 0 I/O: Intake & Output 01/26/22 01/27/22 01/27/22 23:59 07:59 15:59 Intake Total 120 240 Balance 120 240 Post-procedural complaints: none Patient feedback: Patient satisfied with anesthetic care.
--- NOTE | 2022-01-27 15:49 | PC.NURSE ---
[id number] Consulted with patient with concerns. Mother states is reluctant to breast feed on the right breast. Last feeding was on the right and it was successful but now infant will not go to the right breast. is latched to the left breast with football positioning. Positioning adjusted to optimize position for to breastfeed. Discussed mother's concerns with the decrease of time spent on the right breast. Right breast is smaller than the left and is tubular in shape. Reviewed infant feeding cues, frequencies, and offering the less preferred side first as mother did this time. Mother has demonstrated stimulation techniques to wake for feeding and father of baby is actively involved. Reviewed positioning/alignment. was able to maintain latch without discomfort to mother. Nipple care reviewed. Breast pump provided due to not latching on the right breast. Reviewed information regarding pump care, hand washing, nipple care and pumping 8 times in 24 hours (1-2 at night) for 10-15 minutes. If infant doesn't latch to the the right breast, then pump to stimulate milk production. Collection and storage of breastmilk per mom and baby guide. Parents are to call out if there is milk to store. Referred to the visual handout along with the mom and baby guide as a resource and when to call a provider. Mother voiced understanding to call out for RN assistance if she is unable to latch infant for feeding or she has discomfort with nursing. Reinforced information regarding responsive feeding when feeding cues are visualized and to stimulate to breastfeed three hours from start of last feeding. Mother voiced understanding of information shared. Reported to primary RN.
[2022-01-27 19:34] VITALS: BP 132/81; PULSE 72; RESP 16; TEMP 36.6; O2SAT 97
[2022-01-27 19:35] VITALS: PULSE 72; RESP 16; O2SAT 97
[2022-01-28] MEDS: IBUPROFEN 600 MG TABLET PO (05:14)
[2022-01-28 07:45] VITALS: BP 133/83; PULSE 67; RESP 16; TEMP 36.6; O2SAT 98
[2022-01-28] MEDS: MULTIVIT/MIN/PREN/FOL AC/IRON TABLET 1 TAB PO (08:01)
[2022-01-28] MEDS: DOCUSATE SODIUM 100 MG CAPSULE PO (08:01)
--- NOTE | 2022-01-28 10:38 | PM.OBPNVD ---
OB - PN: Subj Subjective Date/time seen: 01/28/22 10:38 Patient comments: no complaints and pain well controlled baby status: doing well OB - PN: Obj Data Labs CBC & Chem 7: 01/27/22 03:59 OB - PN A/P Plan day: 2 Plan: routine care, discharge home and other (plans condoms for control) Time Spent With Patient Time: Total time spent is greater than 50% in coordination of care (as documented) at patient's floor/unit and/or counseling patient: Exam : Bimanual exam- vagina & uterus: other (Uterus firm, nt @U)
[2022-01-30 10:52] VITALS: BP 134/82; PULSE 72; RESP 16; TEMP 36.6; O2SAT 99
== END 2022-01-28 11:48 | disposition home or self-care (01) | DRG 807 ==
LOC: ANHLDR 01-26 10:04 → ANHOB2 01-26 11:07
PROVIDERS: Admitting Provider Obstetrics & Gynecology; Visit Provider Obstetrics & Gynecology
DX: O99.02 Anemia complicating childbirth (principal); Z37.0 Single live birth; Z3A.37 37 weeks gestation of pregnancy; O70.0 First degree perineal laceration during delivery; D64.9 Anemia, unspecified
CPT/HCPCS: 36415; 84112; 85014; 85018; 85025; 86592; 86850; 86900; 86901; 90715; A9270; J2405; J2590; J2795; J7120

== ENCOUNTER 2023-10-02 10:20 | Emergency (ER) | payer OTHER, MEDICAID, SELFPAY ==
[2023-10-02 10:33] VITALS: BP 122/69; PULSE 70; RESP 20; TEMP 36.5; O2SAT 100
--- NOTE | 2023-10-02 10:46 | ED.GENADULT ---
HPI - General Adult General Chief complaint: Upper Respiratory Infection Stated complaint: sorethroat Source: patient, RN notes reviewed and old records reviewed Mode of arrival: ambulatory Limitations: no limitations History of Present Illness HPI narrative: 32-year-old female presents to [facility] with complaints of cough, congestion, sore throat, myalgia, hoarseness, and slight diarrhea for 2-3 days. Patient taking zkep-sck-yariuga medications with little relief Related Data Allergies Allergy/AdvReac Type Severity Reaction Status Date / Time methylprednisolone AdvReac Irritable Verified 06/06/23 14:41 Review of Systems Constitutional: Constitutional: Reports as per HPI, Reports body ache(s) and Reports fatigue Eyes: Eyes: Reports no additional eye complaints ENT: Reports change in voice, Denies dysphagia, Denies vertigo, Denies dizziness, Denies ear discharge, Denies otalgia, Reports hoarseness, Reports nasal congestion, Reports nasal discharge, Denies nasal obstruction and Reports sore throat Cardiovascular: Cardiovascular: Reports no additional cardiovascular complaints Respiratory: Respiratory: Reports chest congestion, Reports cough, Denies pain on inspiration, Denies pain with cough, Denies dyspnea, Denies dyspnea on exertion and Denies wheezing Gastrointestinal: Gastrointestinal: Denies abdominal pain, Denies melena, Denies hematochezia, Reports diarrhea, Denies nausea and Denies vomiting Neurologic: Reports system reviewed and no additional complaints, except as documented PMF Past Medical History Medical History Cholecystectomy planned Depression Healthy female adult Surgical History Surgical History History of orthopedic surgery (10/31/22) left wrist tendon repair Hx of cholecystectomy (~2019) No history of previous surgery Family History Family History Father Family history of diabetes mellitus in first degree relative Grandparent Diabetes mellitus Grandparent Diabetes mellitus Grandparent Hypertension Skin cancer Grandparent No problems noted. 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 There is no relevant family history pertinent to the patient complaint. Exam Const: General: cooperative, no acute distress, ill appearing and well nourished Nutritional Appearance: well nourished Orientation/consciousness: patient oriented x3 Limitations: no limitations HENMT: Head: normal to inspection and normocephalic Ears: external ears normal, TM's normal bilaterally, mastoids normal and Abnormal EAC present Face/Nose/Sinus: normal facial exam Face and sinus: normal facial exam Mouth: Yes Normal oral and palatal mucosa present, Yes lip normal, Yes tongue normal, Yes oropharynx normal and Yes moist mucous membranes Throat: posterior oropharynx abnormal ( erythema), tonsils normal, uvula midline, normal tonsils and no uvular edema Eyes: General: appearance normal, both eyes and all related structures Sclera: sclerae normal Pupils: Equal, round and reactive pupils present Resp: Effort & Inspection: normal respiratory effort, able to speak in complete sentences, no audible
== END 2023-10-02 10:59 | disposition home or self-care (01) ==
PROVIDERS: Emergency Provider Registered Nurse
DX: J02.0 Streptococcal pharyngitis (principal)
CPT/HCPCS: 87880; 99213; G0463

== ENCOUNTER 2024-10-30 09:16 | Emergency (ER) | payer OTHER, SELFPAY ==
[2024-10-30] VITALS (8 sets, daily range): BP systolic 113–156; BP diastolic 61–87; PULSE 68–83; RESP 14–18; TEMP 36.3; O2SAT 98–100
--- NOTE | ~2024-10-30 | US_ITS ---
US pelvic complete w TV Ordering provider: David Cota MD History: . Miscarriage . Comparison: None. Technique: Transabdominal and endovaginal ultrasound of the pelvis (Doppler ultrasound interrogation techniques used as needed for this exam.) FINDINGS: CERVIX: Normal. UTERUS: Measures 11x 5.9x 6.6 cm in length which is within normal limits and is anteverted. No myome trial masses. ENDOMETRIUM: Normal in thickness measuring 14.3 mm. No endometrial masses, cysts or fluid. CUL DE SAC: No free fluid. RIGHT OVARY: Normal in size measuring 5x 3.4x 5 centimeters. Normal echotexture. Doppler vascular kevin w present. Simple cyst is seen measuring 4.5 x 2.9 x 3.6 cm. LEFT OVARY: Normal in size measuring 2.6x 1.9x 1.8 cm. Normal echotexture. Doppler vascular flow pres ent. ADNEXA: Normal. No mass. IMPRESSION: Simple right ovarian cyst. Otherwise, normal pelvic ultrasound. Reviewed, dictated and finalized at location A. [facility]E [facility]
[2024-10-30 11:23] LABS: BEDSIDEPREGUCG Negative (Negative)
[2024-10-30 11:55] LABS: Basophils Percent Auto 0.2 % (0.2-1.2); Eosinophils Absolute Auto 0.1 K/mm3 (0-0.3); Eosinophils Percent Auto 1.4 % (0-4.4); Hematocrit 33.7 % (37.0-47.0); Hemoglobin 10.9 g/dL (12.0-15.0); Immature Granulocyte Absolute 0.03 K/mm3 (0.00-0.031); Immature Granulocyte Percent A 0.3 % (0-0.5); Lymphocytes Absolute Auto 1.85 K/mm3 (0.9-3.2); Lymphocytes Percent Auto 17.9 % (18.3-44.2); Mean Corpuscular HGB Conc 32.3 g/dl (32-36); Mean Corpuscular Hemoglobin 26.5 pg (26-34); Mean Platelet Volume 7.9 fl (7.4-10.4); Monocytes Absolute Auto 0.6 K/mm3 (0.1-0.6); Neutrophils Absolute Auto 7.7 K/mm3 (1.3-6.7); Neutrophils Percent Auto 74.2 % (45.5-73.1); Platelet Count Result 249 k/mm3 (150-375); Red Blood Count 4.11 M/mm3 (4.2-5.4); Red Cell Distribution Width 13.7 % (11.5-14.5); White Blood Count 10.3 K/mm3 (4.5-10.0)
[2024-10-30 12:04] LABS: Alanine Aminotransferase 35 U/L (6-35); Albumin Level 4.1 g/dL (3.5-5.1); Alkaline Phosphatase 65 U/L (38-126); Anion Gap 1 mmol/L (4-12); Aspartate Amino Transferase 29 U/L (14-36); Bilirubin,Total 0.4 mg/dL (0.2-1.3); Blood Urea Nitrogen 10 mg/dL (7-17); Calcium 9.1 mg/dL (8.4-10.2); Carbon Dioxide 29 mmol/L (22-30); Chloride 105 mmol/L (98-107); Estimated CRCL calculation 122 ml/min; Estimated Glomerular Filt Rate > 60; Glucose 92 mg/dL (65-110); Potassium 3.8 mmol/L (3.4-5.0); Sodium 135 mmol/L (137-145)
[2024-10-30 12:14] LABS: Partial Thromboplastin Time 27.4 Seconds (22.3-36.8); Prothrombin Time 13.3 Seconds (11.1-14.7)
[2024-10-30 12:21] LABS: Beta HCG Quantitative < 2.39 mIU/ML
--- NOTE | 2024-10-30 12:58 | ED.FEMALEGU ---
HPI - Female Genitourinary General Chief complaint: Vaginal Bleeding Stated complaint: vag bleeding, LMP 3 months ago Time Seen by Provider: 10/30/24 12:13 Source: patient and family Mode of arrival: ambulatory Limitations: no limitations History of Present Illness HPI Narrative: 33 years old white female came to the ED by private car complaining of heavy vaginal bleeding started 14 days ago, got worse over the last 2 days, at least 2-3 pads a day, and a tampon every 20 minutes. Associated with tiredness, lightheadedness, dizziness. Last regular menstrual period 3 months ago. Patient period Usually last for 4-5 days. Patient is 1, para 1, 0. Does not take medicine at home Related Data Allergies Allergy/AdvReac Type Severity Reaction Status Date / Time methylprednisolone AdvReac Irritable Verified 10/30/24 14:34 Review of Systems Review of Systems: All systems reviewed & are unremarkable except as noted in HPI and below PMFSH Past Medical History Medical History Depression Cholecystectomy planned Healthy female adult Surgical History Surgical History Hx of cholecystectomy (~2019) History of orthopedic surgery (10/31/22) left wrist tendon repair No history of previous surgery Family History Family History Father Family history of diabetes mellitus in first degree relative Grandparent Diabetes mellitus Grandparent Diabetes mellitus Grandparent Hypertension Skin cancer Grandparent No problems noted. 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 Gender identity (if verbalized by the patient): Female Sexual Orientation (if Verbalized by the Patient): Straight or Heterosexual Spiritual care concerns: No Exam Narrative: General appearance: Well-developed, well-nourished Skin: Normal color Chest and respiratory: Airway patent, no respiratory distress, no accessory muscle use Heart: Regular rate/rhythm Abdomen: Soft, nontender, no organomegaly, quiet bowel sounds Musculoskeletal: Normal range of motion, nontender back Neurologic: Alert and oriented ?3, [employer] is normal as tested, no gross motor deficit : External Female Exam: normal external appearance Speculum Exam - Vagina: normal appearance of the vagina and vaginal bleeding ( active vaginal bleeding, mild, blood clots) Speculum Exam - Cervix: normal appearance of the cervix and Cervical os closed Course Consultations Consultation #1: Dr. [place], discharge on julio 1 tablet every 6 hours, call office Sunday Date: 10/30/24 Vital Signs Vital signs: Vital Signs Temperature 36.3 C L 10/30/24 09:39 Pulse Rate 80 10/30/24 09:39 Respiratory Rate 18 10/30/24 09:39 Blood Pressure 156/86 H 10/30/24 09:39 Pulse Oximetry 100 10/30/24 09:39 Oxygen Delivery Room Air 10/30/24 09:39 Temperature 36.3 C L 10/30/24 09:39 Pulse Rate 76 10/30/24 14:31 Respiratory Rate 14 10/30/24 14:31 Blood Pressure 113/61 10/30/24 14:31 Pulse Oximetry 98 10/30/24 14:31 Oxygen Delivery Room Air 10/30/24 11:36 MDM - Female Genitourinary Lab Data 10/30/24 11:48 10/30/24 11:48 Labs: Lab Results 10/30/24 10/30/24 Range/Units 11:21 11:48 WBC 10.3 H (4.5-10.0) K/mm3 RBC 4.11 L (4.2-5.4) M/mm3 Hgb 10.9 L (12.0-15.0) g/dL Hct 33.7 L (37.0-47.0) % MCV 82.0 (80-100) fl MCH 26.5 (26-34) pg MCHC 32.3 (32-36) g/dl RDW 13.7 (11.5-14.5) % Plt Count 249 (150-375) k/mm3 MPV 7.9 (7.4-10.4) fl Immature Gran % (Auto) 0.3 (0-0.5) % Neut % (Auto) 74.2 H (45.5-73.1) % Lymph % (Auto) 17.9 L (18.3-44.2) % Prentiss % (Auto) 6.0 (2.6-8.5) % Eos % (Auto) 1.4 (0-4.4) % Baso % (Auto) 0.2 (0.2-1.2) % Lymph # (Auto) 1.85 (0.9-3.2) K/mm3 Prentiss # (Auto) 0.6 (0.1-0.6) K/mm3 Eos # (Auto) 0.1 (0-0.3) K/mm3 Baso # (Auto) 0.0 (0.0-0.1) K/mm3 Abs Immat Gran (auto) 0.03 (0.00-0.031) K/mm3 Absolute Neuts (auto) 7.7 H (1.3-6.7) K/mm3 Absolute Nucleated RBC 0.000 (0.0-0.012) K/mm3 Nucleated RBC % 0.0 (0.0-0.2) % PT 13.3 (11.1-14.7) Seconds INR 1.0 APTT 27.4 (22.3-36.8) Seconds Sodium 135 L (137-145) mmol/L Potassium 3.8 (3.4-5.0) mmol/L Chloride 105 (98-107) mmol/L Carbon Dioxide 29 (22-30) mmol/L Anion Gap 1 L (4-12) mmol/L BUN 10 (7-17) mg/dL Creatinine 0.60 L (0.7-1.0) mg/dL Estim Creat Clear Calc 122 ml/min Estimated GFR > 60 (59 - ) Glucose 92 (65-110) mg/dL Calcium 9.1 (8.4-10.2) mg/dL Total Bilirubin 0.4 (0.2-1.3) mg/dL AST 29 (14-36) U/L ALT 35 (6-35) U/L Alkaline Phosphatase 65 (38-126) U/L Total Protein 8.0 (6.3-8.2) g/dL Albumin 4.1 (3.5-5.1) g/dL Beta HCG, Quant < 2.39 mIU/ML POC Urine HCG, Qual Negative (Negative) Blood Type A Positive Antibody Screen Negative Screen Not Reportable Baby's Blood Type Not Reportable Baby's VY Not Reportable Doses of RhIg Required 0 Imaging Data Radiologist's impression: Impressions Pelvic/Transvag US 10/30/24 16:09 IMPRESSION: Simple right ovarian cyst. Otherwise, normal pelvic ultrasound. Discharge Plan Discharge Clinical Impression: Vaginal bleeding Patient Disposition: Home, Self-Care Condition: Stable Instructions: Menorrhagia (ED) Additional Instructions: Return if symptoms are worsening , call your family physician for appointment, take Tylenol as as needed for aches and pain, continue home medications. Call OBGYN office Sunday, encourage fluid intake Patient Language: [place] Prescriptions: New drospirenone-ethinyl estradiol [JULIO (28)] 3-0.02 mg tablet 1 tablet PO Q6H Qty: 28 0RF No Action amoxicillin 500 mg capsule 500 mg PO Q12H Qty: 20 0RF Follow-up/Referrals: Iveth Ivory MD [Physician] - PHYSICIAN,DESIGN CENTER CONSULTANT [Primary Care Provider] -
[2024-10-30] MEDS: ONDANSETRON INJ 4 MG/2 ML VIAL IV PUSH (14:35)
[2024-10-30] MEDS: SODIUM CHLORIDE 0.9% IV 1,000 ML 999 ML IV CONT (14:35)
[2024-10-30] MEDS: MORPHINE SULFATE (*CRX) 4 MG/ML INJ IV PUSH (14:36)
--- OUTSIDE RECORDS SUMMARY | 2024-11-06 23:36 | XMS_ITS | Encounter Summary ---
Author Organization [facility] Address [address] [place] [address] [place] [address] Care Team Providers Care Personnel Consultant Name Role Phone Unknown, Provider Primary Care Provider Unavaila ble Encounter Details Date Type Department Care Team (Latest Contact Info) Description 06/12/2020 Travel Social History Tobacco Use Types Packs/Day Years Used Date Smoking Tobacco: Never Smokeless Tobacco: Never Sex and Gender Information Value Date Recorded Sex Assigned at Not on file Gender Identity Not on file Sexual Orientation Not on file COVID-19 Exposure Response Date Recorded In the last month, have you been in contact with someone who was confirmed or suspected to have Coronavirus / COVID-19? No / Unsure 06/12/2020 11:37 AM CDT documented as of this encounter Plan of Treatment Not on file documented as of this encounter Visit Diagnoses Not on filedocumented in this encounter Care Teams Personnel Consultant Relationship Specialty Start Date End Date Unknown, Provider PCP - General 10/04/16 documented as of this encounter
--- OUTSIDE RECORDS SUMMARY | 2024-11-06 23:36 | XMS_ITS | Encounter Summary ---
Author Organization [facility] Address [address] [place] [address] [place] [address] Care Team Providers Care Trust Administrator Name Role Phone Unknown, Provider Primary Care Provider Unavaila ble Reason for Visit * Reason Onset Date Comments Follow-up 12/12/2018 Encounter Details Date Type Department Care Team (Late st Contact Info) Description 12/12/2018 Telephone [facility] AT [address] [id number] Provider, [facility] Follow-up Social History Tobacco Use Types Packs/Day Years Used Date Smoking Tobacco: Never Smokeless Tobacco: Never Sex and Gender Information Value Date Recorded Sex Assigned at Not on file Gender Identity Not on file Sexual Orientation Not on file documented as of this encounter Plan of Treatment Not on file documented as of this encounter Visit Diagnoses Not on filedocumented in this encounter Care Teams Trust Administrator Relationship Specialty Start Date End Date Unknown, Provider PCP - General 10/04/16 documented as of this encounter
--- OUTSIDE RECORDS SUMMARY | 2024-11-06 23:36 | XMS_ITS | Encounter Summary ---
Author Organization [facility] Address [address] [place] [address] [place] [address] Care Team Providers Care Public Policy Analyst Name Role Phone Unknown, Provider Primary Care Provider Unavaila ble Reason for Visit * Reason Onset Date Comments Results 12/19/2016 Encounter Details Date Type Department Care Team (Late st Contact Info) Description 12/19/2016 Telephone [facility] AT [address] [address] Provider, [facility] Results Social History Tobacco Use Types Packs/Day Years Used Date Smoking Tobacco: Never Sex and Gender Information Value Date Recorded Sex Assigned at Not on file Gender Identity Not on file Sexual Orientation Not on file COVID-19 Exposure Response Date Recorded In the last month, have you been in contact with someone who was confirmed or suspected to have Coronavirus / COVID-19? No / Unsure 06/12/2020 11:37 AM CDT documented as of this encounter Miscellaneous Notes * Telephone Encounter - Adilia Noonan APRN-CNP - 12/20/2016 10:41 AM NEURODIAGNOSTIC TECHNOLOGIST Pt notified of neg throat culture. ODIAGNOSTIC TECHNOLOGIST * Telephone Encounter - Angeles Solorio - 12/19/2016 5:06 PM CST Pt returning call. Please call ODIAGNOSTIC TECHNOLOGIST documented in this encounter Plan of Treatment Not on file documented as of this encounter Visit Diagnoses Not on filedocumented in this encounter Care Teams Public Policy Analyst Relationship Specialty Start Date End Date Unknown, Provider PCP - General 10/04/16 documented as of this encounter
--- OUTSIDE RECORDS SUMMARY | 2024-11-06 23:36 | XMS_ITS | Patient Health Summary ---
Author Organization [facility] Address [address] [place] [address] Care Team Providers Care Director Social Service Name Role Phone Unknown, Provider Primary Care Provider Unavaila ble Note from [facility],non-owned Affiliates and Associated Physician Practices is amultiple site organization consisting of ambulatory clinics and hospital sitesin [place], [place], [place] and [place]. This disclosure is being madepursuant to the Care Everywhere program and may not contain all information available regarding this patient. Last updated 18.[facility] Allergies No known active allergies Medications * Be aware that medications may not be up to date on this document. Alwaysverify current medications with the patient. * predniSONE (DELTASONE) 20 MG tablet(Started 06/12/2020) Take 3 tablets (60mg) days 1-5, and then take 2 tablets (40mg) days 6-10, and then take 1 tablet (20mg) days 11-15. * triamcinolone acetonide (KENALOG) 0.1 % cream(Started 06/12/2020) Apply to affected area 2 times daily Social History Tobacco Use Types Packs/Day Years Used Date Smoking Tobacco: Never Smokeless Tobacco: Never Sex and Gender Information Value Date Recorded Sex Assigned at Not on file Gender Identity Not on file Sexual Orientation Not on file Last Filed Vital Signs Vital Sign Reading Time Taken Comments Blood Pressure 116/72 06/12/2020 11:56 AM CDT Pulse 88 06/12/2020 11:56 AM CDT Temperature 37.2 ??C (98.9 ??F) 06/12/2020 11:56 AM C DT Respiratory Rate 16 06/12/2020 11:56 AM CDT Oxygen Saturation 98% 06/12/2020 11:56 AM CDT Inhaled Oxygen Concentration - - Weight 77.1 kg (170 lb) 06/12/2020 11:56 AM CDT Height 160 cm (5' 3 ) 06/12/2020 11:56 AM CDT Body Mass Index 30.11 06/12/2020 11:56 AM CDT Procedures * CULTURE RESPIRATORY UPPER(Performed 09/25/2019) Performed for Upper respiratory tract infection, unspecified type * INFLUENZA A+B - POINT OF CARE (AMB)(Performed 09/25/2019) Performed for Upper respiratory tract infection, unspecified type * STREP A SCREEN - POINT OF CARE (AMB) STL(Performed 09/25/2019) Performed for Upper respiratory tract infection, unspecified type * STREP A SCREEN - POINT OF CARE (AMB) STL(Performed 12/10/2018) Performed for Influenza A, Strep pharyngitis * INFLUENZA A+B - POINT OF CARE (AMB)(Performed 12/10/2018) Performed for Influenza A, Strep pharyngitis * CULTURE STREP GROUP A(Performed 12/15/2016) Performed for Acute URI, Acute pharyngitis, unspecified etiology * STREP A SCREEN - POINT OF CARE (AMB) STL(Performed 12/15/2016) Performed for Acute URI * STREP A SCREEN - POINT OF CARE (AMB) STL(Performed 10/04/2016) Performed for Strep throat Results * CULTURE RESPIRATORY UPPER (09/25/2019 9:24 AM AUDIO PRODUCTION ENGINEER) Upper Respiratory Culture Final report [facility] ACCOUNT BILL Result 1 [facility] ACCOUNT BILL Comment:Routine respiratory wolfgang Microbiology ENTIRE THROAT (SURFACE REGION OF NECK) / Unknown 09/25/2019 9:24 AM AUDIO PRODUCTION ENGINEER 09/25/2019 Narrative Resulting Agency Comment Lab Testing performed at: [facility] ??[facility] [phone] Brigitte Paez APRN-[facility] - MICROBIOLOG Y ORDERABLES [facility] ACCOUNT BILL [address] [place] [address] * STREP A SCREEN - POINT OF CARE (AMB) STL (09/25/2019 9:18 AM AUDIO PRODUCTION ENGINEER) Only the most recent of4 resultswithin the time period is included. Strep A Rapid POCT Negative Negative Strep A Internal Control Present Lot # [id number] Expiration Date [id number] Throat ENTIRE THROAT (SURFACE REGION OF NECK) / Unknown 09/25/2019 9:18 AM AUDIO PRODUCTION ENGINEER Brigitte Paez PEARL STRINGER-[facility] - POINT OF DE RE ORDERABLES * INFLUENZA A+B - POINT OF CARE (AMB) (09/25/2019 9:18 AM AUDIO PRODUCTION ENGINEER) Only the most recent of2 resultswithin the time period is included. Influenza A Antigen Rapid Negative Negative Influenza B Antigen Rapid Negative Negative Influenza Internal Control positive NEGATIVE - POSITIVE Influenza Lot Number [id number] Influenza Expiration Date Other NASOPHARYNGEAL SWAB / Unknown 09/25/2019 9:18 AM AUDIO PRODUCTION ENGINEER Brigitte Paez APRN-[facility] - POINT OF DE RE ORDERABLES * CULTURE STREP GROUP A (12/15/2016 12:25 PM AUDIO PRODUCTION ENGINEER) Beta-Strep Culture, Group A Only Negative [facility] INSURANCE BILL Microbiology ENTIRE THROAT (SURFACE REGION OF NECK) / Unknown 12/15/2016 12:25 PM AUDIO PRODUCTION ENGINEER 12/15/2016 Narrative Resulting Agency Comment [facility] [address] [facility] [phone] Adilia Noonan APRN-[facility] - MICROBIOLOGY ORDERABLES [facility] INSURANCE BILL [address] [place] [address] Care Teams Director Social Service Relationship Specialty Start Date End Date Unknown, Provider PCP - General 10/04/16
--- OUTSIDE RECORDS SUMMARY | 2024-11-06 23:36 | XMS_ITS | Encounter Summary ---
Author Organization [facility] [address] [place] [address] Care Team Providers Care Missile Tracking Technician Name Role Phone Unknown, Provider Primary Care Provider Unavaila ble Reason for Visit * Reason Onset Date Comments Fatigue 06/21/2020 Breathing Problem 06/21/2020 Mood Instability 06/21/2020 SWEATS 06/21/2020 Drug Reaction 06/21/2020 Patient Requested Call 06/21/2020 Encounter Details Date Type Department Care Team (Late st Contact Info) Description 06/21/2020 Telephone [facility] [address], [address] [place] [address] Provider, Yessenia Fontenot Fatigue; Breathing Problem; Mood Instability; SWEATS; Drug Reaction; Patient Requested Call Social History Tobacco Use Types Packs/Day Years [...] encounter Miscellaneous Notes * Telephone Encounter - Liz Prince - 06/21/2020 4:15 PM CDT Who is calling? self What is the reason for call? Issa swing sob fatigue shaking sweat vomit.asked did she want to go urgent care said no. Expected Response from the Clinic? Call back Patient reporting concerning symptoms of bruising easy, dizzy, seeing starts, throwing up blood, extreme fatigue, shaking, sweating, and short of breath... Told her to get check out CAROLINE- voiced thatkomal could try an urgent care but they will probably send her to ER, so she could go to ER first. Ifkomal can't drive to call 911 or have a family member take her. It is important that you go NOW, she verbalized understanding. DANA Delong documented in this encounter Plan of Treatment Not on file documented as of this encounter Visit Diagnoses Not on filedocumented in this encounter Care Teams Missile Tracking Technician Relationship Specialty Start Date End Date Unknown, Provider PCP - General 10/04/16 documented as of this encounter
--- OUTSIDE RECORDS SUMMARY | 2024-11-06 23:36 | XMS_ITS | Encounter Summary ---
Author Organization [facility] Address [address] [place] [address] [place] [address] Care Team Providers Care Second Hand Paper Machine Name Role Phone Unknown, Provider Primary Care Provider Unavaila ble Reason for Visit * Reason Onset Date Comments Follow-up 12/16/2016 Encounter Details Date Type Department Care Team (Late st Contact Info) Description 12/16/2016 Telephone [facility] AT [address] [phone] Ricarda Webster Follow-up Social History Tobacco Use Types Packs/Day Years Used Date Smoking Tobacco: Never Sex and Gender Information Value Date Recorded Sex Assigned at Not on file Gender Identity Not on file Sexual Orientation Not on file documented as of this encounter Miscellaneous Notes * Telephone Encounter - Ricarda Webster - 12/16/2016 12:20 PM CST No questions or concerns RIALS MANAGEMENT SUPERVISOR documented in this encounter Plan of Treatment Not on file documented as of this encounter Visit Diagnoses Not on filedocumented in this encounter Care Teams Second Hand Paper Machine Relationship Specialty Start Date End Date Unknown, Provider PCP - General 10/04/16 documented as of this encounter
--- OUTSIDE RECORDS SUMMARY | 2024-11-06 23:36 | XMS_ITS | Data Portability ---
Author Organization [facility], Main Office Address [address] [place] [address] Care Team Providers Care Wholesale Loan Processor Name Role Phone DANYA VILLEGAS Dye Jig Operator Assessment Encounter Date Assessment Date Assessment LastModified by Organization Details LastModified Time 04/10/2023 04/10/2023 32-year-old fema le approximately 5 months status post left 1st extensor compartment release with tenosynovectomy on 11/01/2022 and has recovered from this without having any recurrence of her pain. At her last visit she was having some thumb CMC joint pain and was given a Medrol Dosepak and advised to wear her thumb spica brace. she has had significant improvement of this pain and is able to perform all of her work duties without any issues. We discussed that she may continue to have occasional discomfort after days of excessive use. She may use oral or topical anti-inflammatorie s as needed. She is released to continue to perform full work duties without any restrictions and may follow-up as needed if her symptoms return. [email or web address] Not available 04/10/2023 13:56:43 Plan of Treatment Reminders Order Date Submit Date Provider Last Modified By Organization Details Last Modified Time Details Appointments None recorded. Lab None recorded. Referral None recorded. Procedures None recorded. Surgeries None recorded. Imaging None recorded. Medication Orders Medrol (Fidel) 4 mg tablets in a dose pack 023 023 [email or web address] [id number], [address], [place], [place], [id number], 16:56:24 Patient TargetsNo targets recorded. Patient InstructionsNo instructions recorded. Reason for Referral None Reported. Problems Name Problem SNOMED Code Status Onset Date Resolution Date Notes Provider Name and Address Organization Details Recorded Time Tenosynovi tis of right radial styloid 9688115236226 9100 Active 2021 Not Available [facility] 3 22:42:51 Carpal tunnel syndrome of left wrist 1518926268963 02 Active 2021 Not Available [facility] 3 22:42:51 Pain of left wrist 1661097078943 02 Active 2021 Not Available [facility] 3 22:42:51 Multiple joint pain 22725668 Active 2021 Not Available [facility] 3 22:42:51 depression 67327575 Active 2021 Not Available [facility] 3 22:42:51 60870901 Active 2020 Not Available [facility] 3 22:42:51 Pain of left hand 2821743780523 03 Active 2022 Jameson Malcolm MD [address] [place] [address], [facility] [address], [place], [address] , [facility] 3 17:00:55 Problem Notes None recorded. Procedures Surgical History Date Name Laterality Status Provider Name and Address Organization Details Recorded Time Cholecystectomy completed Not Available [facility] 01/03/2023 22:42:15 Imaging Results None recorded. Procedure Notes None recorded. Medical Equipment None Reported. Allergies Allergen ID Allergen Name Allergen Category Reaction Reaction Severity Criticality Documentation Date Start Date Code Code System Note Provider Name and Address Organization Details Recorded Time 10973 prednison e medicatio n dizziness nausea vomiting Not available Not available Not available Not available 01/03/2023 8640 RxNorm Not Available [facility] 3 22:43:46 Medications Name Sig Start Date Stop Date Status Note LastModified by Organization Details LastModified Time Vitamin B-6 25 mg tablet TAKE 1 TABLET BY MOUTH THREE TIMES DAILY 09/21 completed Not Available Not Available Not Available ibuprofen 800 mg tablet TAKE 1 TABLET BY MOUTH TWICE DAILY WITH MEALS active Not Available Not Available No t Available clomiphene citrate 50 mg tablet Take 1 tablet every day by oral route as directed for 5 days. 07/01 completed Not Available Not Available Not Available hydrocodone 5 mg-acetamin ophen 325 mg tablet TAKE 1 TABLET BY MOUTH EVERY 6 HOURS NEEDED FOR PAIN active Not Available Not Available No t Available ondansetron HCl 4 mg tablet TAKE 1 TABLET BY MOUTH EVERY 4 TO 6 HOURS NEEDED active Not Available Not Available No t Available Medrol (Fidel) 4 mg tablets in a dose pack Take 1 dose pk by oral route as directed. 2022 active Not Available Not Available Not Avai lable prednisone 20 mg tablet 03/11 completed Not Available Not Available Not Available triamcinolo ne acetonide 0.1 % topical cream APPLY TO AFFECTED AREA BID 03/11 completed Not Available Not Available Not Available famotidine 20 mg tablet Take 1 tablet every day by oral route. 06/30 completed Not Available Not Available Not Available Kenalog 10 mg/mL suspension for injection In office injection administe red by the provider 08/03 completed [facility]: 0003- 0494- 20 Not Available Not Available Not Available sertraline 25 mg tablet TAKE 1 TABLET BY MOUTH EVERY DAY IN THE EVENING 08/14 completed Not Available Not Available Not Available ibuprofen 600 mg tablet TAKE 1 TABLET BY MOUTH EVERY 6 HOURS FOR 10 DAYS NEEDED FOR CRAMPING 06/30 completed Not Available Not Available Not Available oxycodone-a cetaminophe n 7.5 mg-325 mg tablet active Not Available Not Available Not Available sertraline 50 mg tablet TAKE 1 TABLET BY MOUTH EVERY DAY active Not Available Not Available No t Available Unisom (doxylamine ) 25 mg tablet Take 1 tablet every day by oral route at dinner. 09/21 completed Not Available Not Available Not Available dicyclomine 10 mg capsule TAKE ONE CAPSULE BY MOUTH FOUR TIMES DAILY NEEDED 03/11 completed Not Available Not Available Not Available amoxicillin 875 mg-potassiu m clavulanate 125 mg tablet TAKE 1 TABLET BY MOUTH TWICE DAILY WITH FOOD active Not Available Not Available No t Available nitrofurant oin monohydrate /macrocryst als 100 mg capsule TK 1 C PO Q 12 H FOR 5 DAYS 03/11 completed Not Available Not Available Not Available chlorhexidi ne gluconate 0.12 % mouthwash active Not Available Not Available No t Available ropivacaine (PF) 5 mg/mL (0.5 %) injection solution Take 2 mg by injection route. 08/03 completed Not Available Not Available Not Available Vitals Date Recorded Body mass index (BMI) Body height Body weight Provider Name and Address Organization Details Last Updated DateTime 09/26/2022 33.7 kg/m2 160.02 cm 07014.55 g Not Available [facility] 01/03/2023 22:42:33 Date Recorded Body mass index (BMI) Body height Body weight Provider Name and Address Organization Details Last Updated DateTime 11/14/2022 32.4 kg/m2 160.02 cm 85377.4 g Not Available [facility] 01/03/2023 22:42:33 Date Recorded Body mass index (BMI) Body height Body weight Provider Name and Address Organization Details Last Updated DateTime 12/05/2022 31.9 kg/m2 160.02 cm 33007.63 g Not Available [facility] 01/03/2023 22:42:33 Date Recorded Body height Body mass index (BMI) Body weight Provider Name and Address Organization Details Last Updated DateTime 02/07/2023 160.02 cm 32.8 kg/m2 67188.59 g Bobby Michele [facility] 02/07/2023 14:42:37 Date Recorded Body height Body mass index (BMI) Body weight Provider Name and Address Organization Details Last Updated DateTime 04/10/2023 160.02 cm 31.9 kg/m2 93174.63 g Mary Vaz [facility] [employer] 04/10/2023 13:16:36 Social History Question Answer Notes LastModified by Organizat ion Details LastModified Time Tobacco Smoking Status Never Smoker Not Available [facility] 01/03/2023 22:41:59 What Is Your Level Of Alcohol Consumption? None [id number].[id number] Information not available 01/03/2023 What Is Your Level Of Caffeine Consumption? None MIGRATION.[id number] 5304 Information not available 01/03/2023 In The 14 Days Before Symptom Onset, Have You Had Close Contact With A Laboratory-confir med COVID-19 While That Case Was Ill? No MIGRATION.[id number] 0165 Information not available 01/03/2023 In The 14 Days Before Symptom Onset, Have You Had Close Contact With A Person Who Is Under Investigation For COVID-19 While That Person Was Ill? No MIGRATION.561577 4278 Information not available 01/03/2023 What Type Of Diet Are You Following? REGULAR MIGRATION.792477 4425 Information not available 01/03/2023 Which Illicit Or Recreational Drugs Have You Used? None MIGRATION.998878 6802 Information not available 01/03/2023 Do You Or Have You Ever Used E-cigarettes Or Vape? 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 No MIGRATION.117777 8131 Information not available 01/03/2023 Do You Use Insect Repellent Routinely? No MIGRATION.608532 9800 Information not available 01/03/2023 What Was The Date Of Your Most Recent Tobacco Screening? 04/10/2023 [email or web address] Information not available 04/10/2023 What Is Your Relationship Status? Single MIGRATION.857525 5771 Information not available 01/03/2023 Do You Use Your Seat Belt Or Car Seat Routinely? Yes MIGRATION.932261 2270 Information not available 01/03/2023 Do You Have Smoke And Carbon Monoxide Detectors In Your Home? Yes MIGRATION.380582 0658 Information not available 01/03/2023 Do You Use Any Illicit Or Recreational Drugs? No MIGRATION.066282 7977 Information not available 01/03/2023 Do You Use Sunscreen Routinely? Yes MIGRATION.410582 0736 Information not available 01/03/2023 Have You Recently Traveled Abroad? No MIGRATION.207340 2720 Information not available 01/03/2023 Do You Have Any Dietary Restrictions? No MIGRATION.129064 3968 Information not available 01/03/2023 Do You Or Have You Ever Used Any Other Forms Of Tobacco Or Nicotine? No MIGRATION.275244 5451 Information not available 01/03/2023 Sex: Female Functional Status Question Answer Note LastModified by Organizat ion Details LastModified Time What is your exercise level? Occasional [id number].[id number] 26 Information not available 01/03/2023 Mental Status None recorded. Family History Relationship Description Onset Age of this Age Resolved Age Notes LastModified by Organization Details LastModified Time Father Diabetes mellitus [id number] [id number] Not available 01/03/2023 22:42:17 Maternal Grandfather Diabetes mellitus MIGRATION.038 [id number] Not available 01/03/2023 22:42:17 Paternal Grandfather Diabetes mellitus MIGRATION.973 [id number] Not available 01/03/2023 22:42:17 Paternal Grandfather Hypertensive disorder MIGRATION.217 [id number] Not available 01/03/2023 22:42:17 Maternal Grandmother Cerebrovascu lar accident MIGRATION.781 [id number] Not available 01/03/2023 22:42:17 Maternal Grandmother Malignant neoplasm of skin MIGRATION.840 [id number] Not available 01/03/2023 22:42:17 Paternal Grandmother Malignant neoplasm of skin MIGRATION.198 [id number] Not available 01/03/2023 22:42:17 Paternal Aunt Malignant tumor of lung MIGRATION.527 [id number] Not available 01/03/2023 22:42:17 Medical History No medical history recorded. Gynecological History Statement/Question Response Abnormal Pap N Date of Last Mammogram 11/05/2021 Date of LMP 05/09/2021 Date of Last Pap 05/31/2022 Date of Last Pap Smear Current Control Method Age at Menarche 11 Obstetrics History GPAL:G 1 P 0 0 0 0 Type Value Living 0 Total 1 Past Encounters Encounter ID Performer Location Encounter Start Date Encounter Closed Date Diagnosis/Indication Diagnosis SNOMED-CT Code Diagnosis ICD10 Code [id number] _[facility]HE[facility]_M IGRATION_ DEFAULT_1 _1 , 03/11/2021 00:00:00 03/11/2021 12:23:03 [id number] _ATHENA_M IGRATION_ DEFAULT_1 _1 , 03/14/2021 00:00:00 03/14/2021 09:53:44 [id number] _ATHENA_M IGRATION_ DEFAULT_1 _1 , 07/01/2021 00:00:00 07/01/2021 11:35:11 [id number] _ATHENA_M IGRATION_ DEFAULT_1 _1 , 07/25/2021 00:00:00 07/25/2021 17:11:57 [id number] _ATHENA_M IGRATION_ DEFAULT_1 _1 , 08/23/2021 00:00:00 08/23/2021 12:56:37 [id number] _ATHENA_M IGRATION_ DEFAULT_1 _1 , 09/19/2021 00:00:00 09/19/2021 11:13:23 [id number] _ATHENA_M IGRATION_ DEFAULT_1 _1 , 09/21/2021 00:00:00 09/21/2021 09:54:03 [id number] _ATHENA_M IGRATION_ DEFAULT_1 _1 , 10/18/2021 00:00:00 10/18/2021 09:30:44 [id number] [facility] [address] [place] [address] 06/30/2022 00:00:00 07/01/2022 16:25:25 [id number] [facility] [address] [place] [address] 08/01/2022 00:00:00 08/01/2022 17:29:30 [id number] [facility] [address] [place] [address] 08/04/2022 00:00:00 08/04/2022 16:00:02 [id number] [facility] [address] [place] [address] 09/05/2022 00:00:00 09/05/2022 16:30:26 [id number] [facility] [address] [place] [address] 09/26/2022 00:00:00 09/26/2022 16:49:15 [id number] [facility] [address] [place] [address] 11/14/2022 00:00:00 11/14/2022 11:47:05 [id number] [facility] [address] [place] [address] 12/05/2022 00:00:00 12/05/2022 12:29:03 [id number] Jameson Malcolm MD [facility] [address] [place] [address] 02/07/2023 14:41:09 02/07/2023 15:18:54 Tenosynovitis of right radial styloid 3144426559 6600227 M65.4 Carpal lotus lexie syndrome of left wrist 4280594252 49603 G56.02 Pain of left hand 608960 4024 77298 M79.642 [id number] ABBEY Howell [facility] [address] [place] [address] 04/10/2023 13:11:44 04/10/2023 13:58:29 Pain of left wrist [id number] 02561 M25.532 Health Concerns Section Related Observation LastModified by Organization Detai ls LastModified Time None Recorded Concern Status LastModified by Organization Details LastModified Time None Recorded Advance Directives Directive None Recorded Payers Encounter Date Sequence Insurance Name Policy Number Policy Bergeron Covered Member ID Bergeron Member ID Guarantor Name 02/07/2023 2 [place] [facility] PUBLIC A[facility] [id number] [facility] 02/07/2023 [facility] 04/10/2023 2 [place] [facility] [place] [id number] [facility] 04/10/2023 [facility] [employer] [facility] Allyssa Russell Notes Date Note Type Note Provider Name and Address Organization Details Recorded Time 02/07/2023 text/html patient had 1st extensor compartment tenosynovitis we did a release of 1st extensor compartment a few months ago she was doing very well came in today for her follow-up an MMI states she has some pain and points over her CMC joint area got irritated with mopping and lifting activities Jameson Malcolm MD [address] [place] [address], [place] [address], [place], [address], [facility] [employer] [facility] 02/07/2023 17:01:46 04/10/2023 text/html 32-year-old fema le approximately 5 months status post left 1st extensor compartment release with tenosynovectomy on 11/01/2022. She has been doing well and has been able to do all of her work duties without any issues. She no longer has pain in the 1st extensor compartment. At her last visit we gave her some oral steroids and Advised her to wear a thumb spica brace for her thumb CMC joint pain. Since then she has had significant improvement of this pain although she notes occasional twinges every once in a while. ABBEY Howell [address] [facility], [facility] [address], [place], [address], [facility] 04/10/2023 13:57:05 OBGyn Episode No OBEpisode recorded.
--- OUTSIDE RECORDS SUMMARY | 2024-11-06 23:36 | XMS_ITS | Encounter Summary ---
Author Organization [facility] Address [facility] [place] [address] Care Team Providers Care Mash Filter Cloth Changer Name Role Phone Unknown, Provider Primary Care Provider Unavaila ble Reason for Visit * Reason Comments Rash Encounter Details Date Type Department Care Team (Late st Contact Info) Description 06/12/2020 11:40 AM CDT Office Visit [facility] AT [address] [id number] Provider, [facility] [place] Poison lucía (Primary Dx) Social History Tobacco Use Types Packs/Day Years [...] AM CDT documented as of this encounter Last Filed Vital Signs Vital Sign Reading [...] Mass Index 30.11 06/12/2020 11:56 AM CDT documented in this encounter Patient Instructions * Patient Instructions* Olga Smalls, NIPPLE MAKER-HAT BLOCKING MACHINE OPERATOR - 06/12/2020 12:13 PM CDT Prevent a poison lucía rash in the future: Wear skin protection Wash clothing after possible exposure Bathe your pet: Reduce exposure to poison lucía Do not burn poison lucía plants GO TO THE EMERGENCY DEPARTMENT WITH ANY DEVELOPMENT OF FEVER, REDNESS, SWELLING, STREAKS COMING FROM THE RASH, OR TENDERNESS AROUND THE RASH Prednisone Instructions Take this medication with food, preferably breakfast. If taken too late, this medication can cause sleeplessness. Common side effects include increased blood pressure, increased water and sodium retention, increased weight gain, mood changes, and increased blood sugar. Do not take NSAIDS while taking this medication. This includes aspirin, Aleve, Ibuprofen, Naproxen,Midol, Advil, or any medications containing Ibuprofen or aspirin. TAKE ANTACIDS 2 HOURS APART FROM PREDNISONE Go to the ER or call 911 if you experience new onset fevers, personality changes, chest pain, uncontrollable blood sugars (in diabetics), stomach pain, severe generalized muscle pain, uncontrolled blood pressure, severe headaches, changes in vision, or seizures. Patient Education Poison Lucía WHAT YOU NEED TO KNOW: What is poison lucía? Poison lucía is a plant that can cause an itchy, uncomfortable rash on your skin.Poison lucía grows as a shrub or vine in [place], [place], and areas of thick underbrush. It has 3 bright green leaves on each stem that turn red in . What causes a poison lucía rash? A poison lucía rash can occur when the plant oil soaks into your skin.You may get a rash if you touch: ?? Any part of the poison lucía plant: This includes the leaves, stem, vine, roots, locke, and berries. ?? Pets with poison lucía on their fur: They can spread poison lucía oil to your skin and to items inside your car and house. ?? Items with poison lucía oil on them: This includes clothing, shoes, camping or sports equipment, or outdoor tools. ?? A person with poison lucía oil on him: Poison lucía oil may be on their skin or clothing. What can I do if I have been exposed to poison lucía? If you think you have touched poison lucía, rinseyour skin with cool water right away. Then, wash it with soap and water. Rinse your skin well. Do not use hot water because it may cause the oil to spread on your skin. You may also put rubbing alcohol or a solution of 1/2 alcohol and 1/2 water on your skin. This may help your rash to be less severe when it breaks out on your skin. What are the signs and symptoms of a poison lucía rash? ?? A red, swollen, itchy rash that develops within hours to days of exposure to poison lucía ?? A rash that appears in thick patches or thin lines where the plant leaves rubbed against your skin ?? Blisters that may leak clear to yellow liquid, then crust over and become scaly How is a poison lucía rash treated? ?? Antiseptic or drying creams or ointments: Your healthcare provider may recommend medicine to dryout the rash and decrease the itching. These products may be available without a doctor's order. ?? Steroids: This medicine helps decrease itching and inflammation. It can be given as a cream to apply to your skin or as a pill. ?? Antihistamines: This medicine may help decrease itching and help you sleep. It is available without a doctor's order. How can I manage my symptoms? ?? Keep your rash clean and dry: Wash it with soap and water. Gently pat it dry with a clean towel. ?? Try not to scratch or rub your rash: This can cause your skin to become infected. ?? Use a compress on your rash: Dip a clean washcloth in cool water. Wring it out and place it on your rash. Leave the washcloth on your skin for 15 minutes. Do this at least 3 times per day. ?? Take a cornstarch or oatmeal bath: If your rash is too large to cover with wet washcloths, take 3 or 4 cornstarch baths daily. Mix 1 pound of cornstarch with a little water to make a paste. Add the paste to a tub full of water and mix well. You may also use colloidal oatmeal in the bath water. Use lukewarm water. Avoid hot water because it may cause your itching to increase. Can a poison lucía rash be spread by scratching or touching it? You cannot spread poison lucía by touching your rash or the liquid from your blisters. Poison lucía is spread only if you scratch your skin while it still has oil on it. You may think your rash is spreading because new rashes appear over a number of days. This happens because areas covered by thin skin break out in a rash first. Your face or forearms may develop a rash before thicker areas, such as the palms of your hands. How can I prevent a poison lucía rash? ?? Wear skin protection: Wear long pants, a long-sleeved shirt, and gloves. Use a skin block lotionto protect your skin from poison lucía oil. You can find this at a drugstore without a prescription. ?? Wash clothing after possible exposure: If you think you have been near a poison lucía plant, wash the clothes you were wearing separately from other clothes. Rinse the washing machine well after youtake the clothes out. Scrub boots and shoes with warm, soapy water. Dry clean items and clothing that you cannot wash in water. Poison lucía oil is sticky and can stay on surfaces for a long time. It can cause a new rash even years later. ?? Bathe your pet: Use warm water and shampoo on your pet's fur. This will prevent the spread of oil to your skin, car, and home. Wear long sleeves, long pants, and gloves while washing pets or any items that may have oil on them. ?? Reduce exposure to poison lucía: Do not touch plants that look like poison lucía. Keep your yard free of poison lucía. While protecting your skin, remove the plant and the roots. Place them in a plasticbag and seal the bag tightly. ?? Do not burn poison lucía plants: This can spread the oil through the air. If you breathe the oil into your lungs, you could have swelling and serious breathing problems. Oil that clings to the fire sami can land on your skin and cause a rash. When should I contact my healthcare provider? ?? You have pus, soft yellow scabs, or tenderness on the rash. ?? The itching gets worse or keeps you awake at night. ?? The rash covers more than 1/4 of your skin or spreads to your eyes, mouth, or genital area. ?? The rash is not better after 2 to 3 weeks. ?? You have tender, swollen glands on the sides of your neck. ?? You have swelling in your arms and legs. ?? You have questions or concerns about your condition or care. When should I seek immediate care or call 911? ?? You have a fever. ?? You have redness, swelling, and tenderness around the rash. ?? You have trouble breathing. CARE AGREEMENT: You have the right to help plan your care. Learn about your health condition and how it may be treated. Discuss treatment options with your healthcare providers to decide what care you want to receive. You always have the right to refuse treatment. The above information is an educational programming director only. It is not intended as medical advice for individual conditions or treatments. Talk to your doctor, nurse or pharmacist before following any medical regimen to see if it is safe and effective for you. ?? Copyright [employer] 2019 Information is for End User's use only and may not be sold, redistributed or otherwise used for commercial purposes. All illustrations and images included in CareNotes?? are the copyrighted property of [employer], [employer]. or [address] documented in this encounter Progress Notes * Olga Smalls APRN-CNP - 06/12/2020 12:01 PM CDT Subjective: Allyssa Russell is a 29 year old female who presents to clinic today for Chief Complaint Patient presents with ??? Rash Primary Care Physician is Provider Unknown. She states her rash located on the bilateral arms, . Onset was 3 weeks ago. Rash appears inflamed and is spreading, and is severely pruritic Patient was exposed to plants, poison lucía. Patient denies new medications, vitamins, foods, change in household chemicals. Other symptoms include None. She has tried OTC emollient/moisturizer with no improvement OTC anti-itch preparation with no improvement Past Medical History: Diagnosis Date ??? NEGATIVE PAST MEDICAL HISTORY - SEE PROBLEM LIST Family History Problem Relation Name Age of Onset ??? Diabetes - Type 2 Father Current Outpatient Medications Medication Sig Dispense Refill ??? predniSONE (DELTASONE) 20 MG tablet Take 3 tablets (60mg) days 1-5, and then take 2 tablets (40mg) days 6-10, and then take 1 tablet (20mg) days 11-15. 30 tablet 0 ??? triamcinolone acetonide (KENALOG) 0.1 % cream Apply to affected area 2 times daily 30 g 0 No current facility-administered medications for this visit. No Known Allergies Social History Socioeconomic History ??? Marital status: Single Spouse name: Not on file ??? Number of children: Not on file ??? Years of education: Not on file ??? Highest education level: Not on file Occupational History ??? Not on file Social Needs ??? Financial resource strain: Not on file ??? Food insecurity Worry: Not on file Inability: Not on file ??? Transportation needs Medical: Not on file Non-medical: Not on file Tobacco Use ??? Smoking status: Never Smoker ??? Smokeless tobacco: Never Used Substance and Sexual Activity ??? Alcohol use: Not on file ??? Drug use: Not on file ??? Sexual activity: Not on file Lifestyle ??? Physical activity Days per week: Not on file Minutes per session: Not on file ??? Stress: Not on file Relationships ??? Social connections Talks on phone: Not on file Gets together: Not on file Attends zoroastrianism service: Not on file Active member of club or organization: Not on file Attends meetings of clubs or organizations: Not on file Relationship status: Not on file ??? Intimate partner violence Fear of current or ex partner: Not on file Emotionally abused: Not on file Physically abused: Not on file Forced sexual activity: Not on file Other Topics Concern ??? Not on file Social History Narrative ??? Not on file Review of Systems Constitutional: Negative for fatigue, fevers, chills, sweats, malaise. Respiratory: Negative for shortness of breath, acute cough Cardiovascular: Negative Skin: Positive for rash, itching Hematologic/lymphatic: Negative for fever, night sweats, chills Objective: BP 116/72 Pulse 88 Temp 98.9 ??F (37.2 ??C) Resp 16 Ht 1.6 m (5' 3 ) Wt 77.1 kg (170 lb) SpO2 98% BMI 30.11 kg/m2 Exam General appearance: alert, cooperative, no distress, oriented to person, place, and time, wellappearing Lungs: breath sounds normal and symmetric; no rales or wheezes Heart: regular rhythm, normal S1 and S2, without murmurs, gallops or rubs Skin: scattered, raised, urticarial, erythematous, ill-defined rash located on neck, bilateral arm(s), bilateral inguinal region Assessment: Encounter Diagnosis Name Primary? Poison lucía Yes Plan: Keep your rash clean and dry Try not to scratch or rub your rash- doing so puts you at risk for a secondary skin infection Take a cornstarch or oatmeal bath: If your rash is too large to cover with wet washcloths, take 3 or 4 cornstarch baths daily. Mix 1 pound of cornstarch with a little water to make a paste. Add the paste to a tub full of water and mix well. You may also use colloidal oatmeal in the bath water. Use lukewarm water. Avoid hot water because it may cause your itching to increase. Allyssa Russell verbalized understanding and agrees with plan. Follow up with Provider Unknown if symptoms worsen or do not completely resolve Prevent a poison lucía rash in the future: Wear skin protection Wash clothing after possible exposure Bathe your pet: Reduce exposure to poison lucía Do not burn poison lucía plants GO TO THE EMERGENCY DEPARTMENT WITH ANY DEVELOPMENT OF FEVER, REDNESS, SWELLING, STREAKS COMING FROM THE RASH, OR TENDERNESS AROUND THE RASH Prednisone Instructions Take this medication with food, preferably breakfast. If taken too late, this medication can cause sleeplessness. Common side effects include increased blood pressure, increased water and sodium retention, increased weight gain, mood changes, and increased blood sugar. Do not take NSAIDS while taking this medication. This includes aspirin, Aleve, Ibuprofen, Naproxen,Midol, Advil, or any medications containing Ibuprofen or aspirin. TAKE ANTACIDS 2 HOURS APART FROM PREDNISONE Go to the ER or call 911 if you experience new onset fevers, personality changes, chest pain, uncontrollable blood sugars (in diabetics), stomach pain, severe generalized muscle pain, uncontrolled blood pressure, severe headaches, changes in vision, or seizures. Orders Placed This Encounter ??? predniSONE (DELTASONE) 20 MG tablet Sig: Take 3 tablets (60mg) days 1-5, and then take 2 tablets (40mg) days 6-10, and then take 1 tablet (20mg) days 11-15. Dispense: 30 tablet Refill: 0 ??? 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
--- OUTSIDE RECORDS SUMMARY | 2024-11-06 23:36 | XMS_ITS | Clinical Summary ---
Author Organization [facility] Address [address] [place] [address] Care Team Providers Care Entry Level Sales Associate Name Role Phone Unknown, Provider Primary Care Provider Unavaila ble Source Comments [facility],non-owned Affiliates and Associated Physician Practices is amultiple site organization consisting of ambulatory clinics and hospital sitesin [place], [place], [place] and [place]. This disclosure is being madepursuant to the Care Everywhere program and may not contain all information available regarding this patient. Last updated 18.[facility] Allergies No known active allergies Medications * Be aware that medications may not be up to date on this document. Alwaysverify current medications with the patient. Medication Sig Dispensed Refills Start Date End Date Status predniSONE (DELTASONE) 20 MG tablet Take 3 tablets (60mg) days 1-5, and then take 2 tablets (40mg) days 6-10, and then take 1 tablet (20mg) days 11-15. 30 tablet 06/12/2020 Active triamcinolone acetonide (KENALOG) 0.1 % cream Apply to affected area 2 times daily 30 g 06/12/2020 Active Family History Medical History Relation Name Comments Diabetes - Type 2 Father Relation Name Status Comments Father Social History Tobacco Use Types Packs/Day Years [...] Mass Index 30.11 06/12/2020 11:56 AM CDT Plan of Treatment Health Maintenance Due Date Last Done Comments PAP SMEAR 1991 HIV SCREENING 2006 HEPATITIS C SCREENING 11/13/2009 DTAP/TDAP/TD VACCINES (1 - Tdap) 2010 HEPATITIS B VACCINE (1 of 3 - 19+ 3-dose series) 2010 DEPRESSION SCREENING 11/05/2023 COVID-19 VACCINE (1 - 2023-2 5 season) 2024 INFLUENZA VACCINE (#1) 2024 08/05/2017 ZOSTER VACCINE (1 of 2) 2041 HIB VACCINE Aged Out No longer eligi ble based on patient's age to complete this topic HPV VACCINE Aged Out No longer eligi ble based on patient's age to complete this topic MENINGOCOCCAL VACCINE Aged Out No stanley zulema eligible based on patient's age to complete this topic PNEUMOCOCCAL VACCINE Aged Out No long er eligible based on patient's age to complete this topic Care Teams Entry Level Sales Associate Relationship Specialty Start Date End Date Unknown, Provider PCP - General 10/04/16
--- OUTSIDE RECORDS SUMMARY | 2024-11-06 23:36 | XMS_ITS | Encounter Summary ---
Author Organization [facility] Address [address] [place] [address] Care Team Providers Care Repairer Shoe Sticks Name Role Phone Unknown, Provider Primary Care Provider Unavaila ble Reason for Visit * Reason Comments Sore Throat Cough Fever Encounter Details Date Type Department Care Team (Late st Contact Info) Description 09/25/2019 9:20 AM TWX OPERATOR Office Visit [facility] [address] [address] [facility] Upper respiratory tract infection, unspecified type (Primary Dx) Social History Tobacco Use Types Packs/Day Years Used Date Smoking Tobacco: Never Smokeless Tobacco: Never Sex and Gender Information Value Date Recorded Sex Assigned at Not on file Gender Identity Not on file Sexual Orientation Not on file documented as of this encounter Last Filed Vital Signs Vital Sign Reading Time Taken Comments Blood Pressure 130/84 09/25/2019 9:07 AM TWX OPERATOR Pulse 62 09/25/2019 9:07 AM TWX OPERATOR Temperature 37.1 ??C (98.8 ??F) 09/25/2019 9:07 AM CS T Respiratory Rate 16 09/25/2019 9:07 AM TWX OPERATOR Oxygen Saturation 98% 09/25/2019 9:07 AM TWX OPERATOR Inhaled Oxygen Concentration - - Weight 77.1 kg (170 lb) 09/25/2019 9:07 AM TWX OPERATOR Height 160 cm (5' 3 ) 09/25/2019 9:07 AM TWX OPERATOR Body Mass Index 30.11 09/25/2019 9:07 AM TWX OPERATOR documented in this encounter Patient Instructions * Patient Instructions* Brigitte Paez, EMMETT-SENIOR ENERGY TRADER - 09/25/2019 9:22 AM TWX OPERATOR Patient Education 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 Yourcough may be dry, or you may cough up mucus. You may also have muscle aches, joint pain, and tiredness. Rarely, you may have a fever. Cold symptoms occur from inflammation in your upper respiratory system caused by a virus. Most colds go away without treatment. Seek care immediately if: ?? You have increased tiredness and weakness. ?? You are unable to eat. ?? Your heart is beating much faster than usual for you. ?? You see white spots in the back of your throat and your neck is swollen and sore to the touch. ?? You see pinpoint or larger reddish-purple dots on your skin. Contact your healthcare provider if: ?? You have a fever higher than 102??F (38.9??C). ?? You have new or worsening shortness of breath. ?? You have thick nasal drainage for more than 2 days. ?? Your symptoms do not improve or get worse within 5 days. ?? You have questions or concerns about your condition or care. Treatment for cold symptoms may include NSAIDS to decrease muscle aches and fever. Cold medicines may also be given to decrease coughing, nasal stuffiness, sneezing, and a runny nose. Manage your cold symptoms: The following may help relieve cold symptoms, such as a dry throat and congestion: ?? Gargle with mouthwash or warm salt water as directed. ?? Suck on throat lozenges or hard candy. ?? Use a cold or warm vaporizer or humidifier to ease your breathing. ?? Rest for at least 2 days and then as needed to decrease tiredness and weakness. ?? Use petroleum based jelly around your nostrils to decrease irritation from blowing your nose. ?? Drink plenty of liquids. Liquids will help thin and loosen thick mucus so you can cough it up. Liquids will also keep you hydrated. Ask your healthcare provider which liquids are best for you and how much to drink each day. Prevent the spread of germs by washing your hands often. You can spread your cold germs to others for at least 3 days after your symptoms start. Do not share items, such as eating utensils. Cover your nose and mouth when you cough or sneeze using the crook of your elbow instead of your hands. Throwused tissues in the garbage. Do not smoke: Smoking may worsen your symptoms and increase the length of time you feel sick. Talk with your healthcare provider if you need help to stop smoking. Follow up with your healthcare provider as directed: Write down your questions so you remember to ask them during your visits. ?? Copyright [employer] 2018 Information is for End User's use only and may not be sold, redistributed or otherwise used for commercial purposes. All illustrations and images included in CareNotes?? are the copyrighted property of [employer] or [employer] The above information is an administrative aide only. It is not intended as medical advice for individual conditions or treatments. Talk to your doctor, nurse or pharmacist before following any medical regimen to see if it is safe and effective for you. OPERATOR documented in this encounter Progress Notes * Brigitte Paez APRN-CNP - 09/25/2019 9:14 AM CST Subjective: Allyssa Russell is a 28 year old female who presents for evaluation: Chief Complaint Patient presents with ??? Sore Throat ??? Cough ??? Fever Primary Care Physician is Provider Unknown. Symptoms include cough, sore throat, felt Feverish (didn't take it at home), post nasal drainage, emesis of phlegm due to the increase mucus when lays flat causes her to choke. 3 days. 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 No recent travel. She is drinking plenty of fluids. Evaluation to date: none. Treatment to date: has tried otc cold medicine with not much relief No Known Allergies Outpatient Medications Marked as Taking for the 09/25/19 encounter (Office Visit) with Provider, Yessenia Exp Perkins Medication Sig ??? benzonatate (TESSALON) 200 MG capsule Take 1 capsule by mouth 3 times daily as needed for Cough Past Medical History: Diagnosis Date ??? NEGATIVE PAST MEDICAL HISTORY - SEE PROBLEM LIST There is no problem list on file for this patient. Past Surgical History: Procedure Laterality Date ??? Cholecystectomy Social History Socioeconomic History ??? Marital status: Single Spouse name: Not on file ??? Number of children: Not on file ??? Years of education: Not on file ??? Highest education level: Not on file Occupational History ??? Not on file Social Needs ??? Financial resource strain: Not on file ??? Food insecurity: Worry: Not on file Inability: Not on file ??? Transportation needs: Medical: Not on file Non-medical: Not on file Tobacco Use ??? Smoking status: Never Smoker ??? Smokeless tobacco: Never Used Substance and Sexual Activity ??? Alcohol use: Not on file ??? Drug use: Not on file ??? Sexual activity: Not on file Lifestyle ??? Physical activity: Days per week: Not on file Minutes per session: Not on file ??? Stress: Not on file Relationships ??? Social connections: Talks on phone: Not on file Gets together: Not on file Attends pentecostalism service: Not on file Active member of club or organization: Not on file Attends meetings of clubs or organizations: Not on file Relationship status: Not on file ??? Intimate partner violence: Fear of current or ex partner: Not on file Emotionally abused: Not on file Physically abused: Not on file Forced sexual activity: Not on file Other Topics Concern ??? Not on file Social History Narrative ??? Not on file Medications reviewed. Review of Systems Pertinent items are noted in HPI Constitutional: Positive for feverish Eyes: Negative Ears, nose, mouth, and throat: Positive for post nasal drainage, sore throat Respiratory: Positive for acute cough Cardiovascular: Negative Gastrointestinal: Negative Hematologic/lymphatic: Negative Musculoskeletal:Negative Neurological: Negative Objective: BP 130/84 (BP SITE: LEFT ARM, BP POSITION: SITTING, BP CUFF SIZE: 11) Pulse 62 Temp 98.8 ??F (37.1 ??C) (Oral) Resp 16 Ht 1.6 m (5' 3 ) Wt 77.1 kg (170 lb) SpO2 98% BMI 30.11 kg/m2 Skin: Physical Exam Exam General appearance: alert, cooperative, no distress, oriented to person, place, and time, wellappearing Head: normocephalic, without trauma Eyes: sclera and conjunctiva clear, EOMI and PERRLA, lids normal Ears: canals clear, tympanic membranes normal, hearing intact to voice Nose: nares open; no septal deviation is noted, nasal mucosa not inflamed, no maxillary or frontal tenderness Throat: no mucous membrane abnormalities, lips, mucosa, and tongue normal; teeth and gums normal Neck: range of motion is intact, Nodes: no cervical adenopathy Lungs: breath sounds normal and symmetric; no rales or wheezes Heart: regular rhythm, normal S1 and S2, without murmurs, gallops or rubs Neurologic: mental status normal; alert and oriented X 3; Recent Results (from the past 24 hour(s)) STREP A SCREEN - POINT OF CARE (AMB) STL Collection Time: 09/25/19 9:18 AM Result Value Ref Range Strep A Rapid POCT Negative Negative Strep A Internal Control Present Lot # [id number] Expiration Date , INFLUENZA A+B - POINT OF CARE (AMB) Collection Time: 09/25/19 9:18 AM Result Value Ref Range Influenza A Antigen Rapid Negative Negative Influenza B Antigen Rapid Negative Negative Influenza Internal Control positive NEGATIVE - POSITIVE Influenza Lot Number [id number] Influenza Expiration Date , Assessment: . Encounter Diagnoses Name Primary? Upper respiratory tract infection, unspecified type Yes Plan: Discussed dx and tx of URIs Discussed the importance of avoiding unnecessary abx therapy. Suggested symptomatic OTC remedies. RTC prn. Drink plenty of fluids and get plenty of rest You can take an over the counter decongestant and/or antihistamine daily (per package directions) such as Zyrtec-D You can take Tylenol or ibuprofen as needed for fever or pain (per package directions) If you begin to run a fever or if symptoms worsen, such as difficulty breathing or shortness of breath, seek medial attention as soon as possible. Honey can be used to help with cough. The honey (2.5 to 5 ml [0.5 to 1 teaspoon]) can be given straight or diluted in liquid (eg, tea, juice) Humidifier may be helpful especially at night If symptoms persist greater than 10 days or worsen at any time, follow up with your primary health care provider, clinic or emergency care Pt states her rapid streps have shown up negative in past and culture has been positive, so she would like to sent culture to lab today. Orders Placed This Encounter ??? CULTURE RESPIRATORY UPPER ??? STREP A SCREEN - POINT OF CARE (AMB) STL ??? INFLUENZA A+B - POINT OF CARE (AMB) ??? benzonatate (TESSALON) 200 MG capsule Sig: Take 1 capsule by mouth 3 times daily as needed for Cough Dispense: 30 capsule Refill: 0 Continue to follow up with Provider Unknown as directed. After Visit Summary reviewed with patient. The patient indicates understanding of these issues and agrees with the plan. Patient discharged to Home .DANA Douglass 09/25/2019 9:29 AM OPERATOR documented in this encounter Plan of Treatment Not on file documented as of this encounter Procedures Procedure Name Priority Date/Time Associated Diagnosis Comments CULTURE RESPIRATORY UPPER Routine 09/25/2019 9:24 AM TWX OPERATOR Upper respiratory tract infection, unspecified type STREP A SCREEN - POINT OF CARE (AMB) STL Routine 09/25/2019 9:18 AM TWX OPERATOR Upper respiratory tract infection, unspecified type INFLUENZA A+B - POINT OF CARE (AMB) Routine 09/25/2019 9:18 AM TWX OPERATOR Upper respiratory tract infection, unspecified type documented in this encounter Results * CULTURE RESPIRATORY UPPER (09/25/2019 9:24 AM TWX OPERATOR) Upper Respiratory Culture Final report [facility] ACCOUNT BILL Result 1 [facility] ACCOUNT BILL Comment:Routine respiratory wolfgang Microbiology ENTIRE THROAT (SURFACE REGION OF NECK) / Unknown 09/25/2019 9:24 AM TWX OPERATOR 09/25/2019 Narrative Resulting Agency Comment [facility] [address] ??[facility] [phone] Brigitte CORTEZ LAB - MICROBIOLOG Y ORDERABLES [facility] ACCOUNT BILL [address] [place] [address] * INFLUENZA A+B - POINT OF CARE (AMB) (09/25/2019 9:18 AM TWX OPERATOR) Influenza A Antigen Rapid Negative Negative Influenza B Antigen Rapid Negative Negative Influenza Internal Control positive NEGATIVE - POSITIVE Influenza Lot Number [id number] Influenza Expiration Date Other NASOPHARYNGEAL SWAB / Unknown 09/25/2019 9:18 AM TWX OPERATOR Brigitte Paez APRN-SENIOR ENERGY TRADER LAB - POINT OF CA RE ORDERABLES * STREP A SCREEN - POINT OF CARE (AMB) STL (09/25/2019 9:18 AM TWX OPERATOR) Strep A Rapid POCT Negative Negative Strep A Internal Control Present Lot # [id number] Expiration Date [id number] Throat ENTIRE THROAT (SURFACE REGION OF NECK) / Unknown 09/25/2019 9:18 AM TWX OPERATOR Brigitte Paez APRN-SENIOR ENERGY TRADER LAB - POINT OF CA RE ORDERABLES documented in this encounter Visit Diagnoses Diagnosis Upper respiratory tract infection, unspecified type- Primary documented in this encounter Care Teams Repairer Shoe Sticks Relationship Specialty Start Date End Date Unknown, Provider PCP - General 10/04/16 documented as of this encounter
--- OUTSIDE RECORDS SUMMARY | 2024-11-06 23:36 | XMS_ITS | Encounter Summary ---
Author Organization [facility] Address [address] [place] [address] Care Team Providers Care Edge Kitter Name Role Phone Unknown, Provider Primary Care Provider Unavaila ble Reason for Visit * Reason Comments Sore Throat Encounter Details Date Type Department Care Team (Late st Contact Info) Description 12/15/2016 11:20 AM ASPHALT TAMPER Office Visit [facility] AT [address] [address] Provider, [facility] Acute URI (Primary Dx); Acute pharyngitis, unspecified etiology Social History Tobacco Use Types Packs/Day Years Used Date Smoking Tobacco: Never Sex and Gender Information Value Date Recorded Sex Assigned at Not on file Gender Identity Not on file Sexual Orientation Not on file documented as of this encounter Last Filed Vital Signs Vital Sign Reading Time Taken Comments Blood Pressure 120/78 12/15/2016 11:52 AM ASPHALT TAMPER Pulse 70 12/15/2016 11:52 AM ASPHALT TAMPER Temperature 37 ??C (98.6 ??F) 12/15/2016 11:52 AM ASPHALT TAMPER Respiratory Rate 16 12/15/2016 11:52 AM ASPHALT TAMPER Oxygen Saturation 99% 12/15/2016 11:52 AM ASPHALT TAMPER Inhaled Oxygen Concentration - - Weight 68 kg (150 lb) 12/15/2016 11:52 AM ASPHALT TAMPER Height 160 cm (5' 3 ) 12/15/2016 11:52 AM ASPHALT TAMPER Body Mass Index 26.57 12/15/2016 11:52 AM ASPHALT TAMPER documented in this encounter Patient Instructions * Patient Instructions* Adilia Noonan APRN-WES - 12/15/2016 12:24 PM ASPHALT TAMPER Increase fluid intake and rest May take tylenol or ibuprofen per package directions for pain or fever saline nasal spray per package directions to help with nasal and sinus congestion May take delsym or robitussin per package directions to help quite the cough Warm salt water gargles and sore throat lozenges Cover your mouth when you cough and sneeze and wear a mask when around others Wash your hands frequently You will be considered contagious until you have been fever free for 24hrs without a fever 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 Upper Respiratory Infection, It Support Analyst GENERAL INFORMATION: An upper respiratory infection is also called a common cold. It can affect your nose, throat, ears,and sinuses. Common symptoms include the following: ?? Runny or stuffy nose ?? Sneezing and coughing ?? Sore throat or hoarseness ?? Red, watery, and sore eyes ?? Tiredness or restlessness ?? Chills and fever ?? Headache, body aches, or sore muscles Seek immediate care for the following symptoms: ?? Headaches or a stiff neck ?? Bright lights hurt your eyes ?? Chest pain or trouble breathing Treatment for an upper respiratory infection may include any of the following: ?? Decongestants help decrease nasal congestion and improve your breathing. Do not use decongestantsprays for more than a few days. ?? Cough suppressants help decrease coughing. Ask your healthcare provider which type of cough medicine is best for you. Some cough medicines need a doctor's order. ?? NSAIDs , such as ibuprofen, help decrease swelling, pain, and fever. This medicine is available with or without a doctor's order. NSAIDs can cause stomach bleeding or kidney problems in certain people. If you take blood thinner medicine, always ask your healthcare provider if NSAIDs are safe foryou. Always read the medicine label and follow directions. Care for an upper respiratory infection: ?? Rest until your fever is gone or you feel better. ?? Drink liquids as directed to prevent dehydration. You may need to drink 8 to 10 cups of liquid each day. Good liquids to drink include water, paxton alysha, tea, or fruit juices. ?? Gargle with warm salt water to help your sore throat feel better. Mix ?? teaspoon salt with 1 cup warm water. You may also suck on hard candy or throat lozenges. ?? Saline nasal drops help loosen your nasal congestion. They can be bought without a doctor's order. ?? Take a warm bath or shower to help decrease body aches and help you breathe easier. ?? Use a cool-mist humidifier to increase air moisture and make it easier for you to breathe. Prevent the spread of germs: ?? Avoid others for the first 2 to 3 days of your cold. Germs are easily spread during this time. ?? Do not share food, drinks, towels, or personal items with others. ?? Wash your hands often. Use soap and water. Wash your hands after you use the bathroom, change a child's diapers, or sneeze. Wash your hands before you prepare or eat food. Cover your mouth and nose with a tissue when you sneeze or cough. Follow up with your healthcare provider as directed: Write down your questions so you remember to ask them during your visits. CARE AGREEMENT: You have the right to help plan your care. Learn about your health condition and how it may be treated. Discuss treatment options with your caregivers to decide what care you want to receive. You always have the right to refuse treatment. The above information is an braider operator only. It is not intended as medical advice for individual conditions or treatments. Talk to your doctor, nurse or pharmacist before following any medical regimen to see if it is safe and effective for you. ?? 2015 [employer]. Information is for End User's use only and may not be sold, redistributed or otherwise used for commercial purposes. All illustrations and images included in CareNotes?? are the copyrighted property of [employer] or [employer]. ALT TAMPER documented in this encounter Progress Notes * Adilia Noonan APRN-CNP - 12/20/2016 10:38 AM CST Pt notified culture neg ALT TAMPER * Adilia Noonan APRN-CNP - 12/19/2016 5:02 PM CST Message left to call back ALT TAMPER * Silvino Urias APRN-CNP - 12/18/2016 12:00 PM CST Called patient. No answer. Left message to return call. ALT TAMPER * Adilia Noonan APRN-CNP - 12/15/2016 12:17 PM CST [facility] Chief Complaint Patient presents with ??? Sore Throat SUBJECTIVE: General The history is provided by the patient. This is a new problem. The current episode started more than 2 days ago. The problem occurs constantly. The problem has been gradually worsening. Associated symptoms include headaches. Pertinent negatives include no shortness of breath. Treatments tried: theraflu and robitussin. The treatment provided mild relief. 3-4 days of URI symptoms but sore throat has been persistent. Worried about strep Past Medical History Diagnosis Date ??? NEGATIVE PAST MEDICAL HISTORY - SEE PROBLEM LIST No current outpatient prescriptions on file prior to visit. No current facility-administered medications on file prior to visit. Past Surgical History Procedure Laterality Date ??? Negative surgical history History Social History ??? Marital status: Single Spouse name: N/A ??? Number of children: N/A ??? Years of education: N/A Occupational History ??? Not on file. Social History Main Topics ??? Smoking status: Never Smoker ??? Smokeless tobacco: Not on file ??? Alcohol use: Not on file ??? Drug use: Not on file ??? Sexual activity: Not on file Other Topics Concern ??? Not on file Social History Narrative ??? No narrative on file No family history on file. No current outpatient prescriptions on file. No current facility-administered medications for this visit. No Known Allergies REVIEW OF SYSTEMS: Review of Systems Constitutional: Positive for chills, diaphoresis, fever and malaise/fatigue. HENT: Positive for congestion, ear pain and sore throat. Respiratory: Positive for cough. Negative for sputum production, shortness of breath and wheezing. Gastrointestinal: Positive for nausea. Negative for vomiting. Skin: Negative for rash. Neurological: Positive for dizziness and headaches. Negative for loss of consciousness. OBJECTIVE: General appearance: alert, well appearing, and in no distress. BP 120/78 (BP SITE: LEFT ARM, BP POSITION: SITTING, BP CUFF SIZE: Adult) Pulse 70 Temp 98.6 ??F (Oral) Resp 16 Ht 1.6 m (5' 3 ) Wt 68 kg (150 lb) SpO2 99% BMI 26.57 kg/m2 Physical Exam Physical Exam Constitutional: well-developed, well-nourished, and in no distress. HENT: Head: Normocephalic. Right Ear: Tympanic membrane and ear canal normal. Left Ear: Tympanic membrane and ear canal normal. Nose: Mucosal edema and rhinorrhea present. Right sinus exhibits no maxillary sinus tenderness and no frontal sinus tenderness. Left sinus exhibits no maxillary sinus tenderness and no frontal sinus tenderness. Mouth/Throat: Uvula is midline and mucous membranes are normal. Clear oropharyngeal exudate present. No posterior oropharyngeal edema or posterior oropharyngeal erythema. tonsils normal in size and cobblestone noted Eyes: Conjunctivae are normal. Neck: Normal range of motion. Cardiovascular: Normal rate and regular rhythm. Pulmonary/Chest: Effort normal and breath sounds normal. No respiratory distress. no wheezes. no rhonchi. No cough with deep breathing Lymphadenopathy: cervical adenopathy. Right cervical: Superficial cervical adenopathy present. No posterior cervical adenopathy present. Left cervical: Superficial cervical adenopathy present. No posterior cervical adenopathy present. Neurological: alert. Skin: Skin is warm and dry. Psychiatric: Affect normal. ASSESSMENT: Office Visit on 12/15/16 STREP A SCREEN Result Value Ref Range Strep A Rapid Negative Negative Strep A INTERNAL CONTROL Present Lot Number [id number] Expiration Date [id number] Encounter Diagnoses Name Primary? Acute URI Yes ??? Acute pharyngitis, unspecified etiology PLAN: Orders Placed This Encounter ??? CULTURE STREP GROUP A ??? STREP A SCREEN Pt requesting a throat culture, states has had neg rapid and positive culture in the past Increase fluid intake and rest May take tylenol or ibuprofen per package directions for pain or fever saline nasal spray per package directions to help with nasal and sinus congestion May take delsym or robitussin per package directions to help quite the cough Warm salt water gargles and sore throat lozenges Cover your mouth when you cough and sneeze and wear a mask when around others Wash your hands frequently You will be considered contagious until you have been fever free for 24hrs without a fever 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 See patient handout on URI ALT TAMPER documented in this encounter Plan of Treatment Not on file documented as of this encounter Procedures Procedure Name Priority Date/Time Associated Diagnosis Comments CULTURE STREP GROUP A Routine 12/15/2016 12:25 PM ASPHALT TAMPER Acute URI Acute pharyngitis, unspecified etiology STREP A SCREEN - POINT OF CARE (AMB) STL Routine 12/15/2016 Acute URI documented in this encounter Results * CULTURE STREP GROUP A (12/15/2016 12:25 PM ASPHALT TAMPER) Beta-Strep Culture, Group A Only Negative [facility] INSURANCE BILL Microbiology ENTIRE THROAT (SURFACE REGION OF NECK) / Unknown 12/15/2016 12:25 PM ASPHALT TAMPER 12/15/2016 Narrative Resulting Agency Comment [facility] [address] ??[facility] [phone] Adilia [facility] - MICROBIOLOGY ORDERABLES [facility] INSURANCE BILL [address] [place] [address] * STREP A SCREEN (12/15/2016) Strep A Rapid POCT Negative Negative Strep A Internal Control Present Lot # [id number] Expiration Date [id number] Throat ENTIRE THROAT (SURFACE REGION OF NECK) / Unknown 12/15/2016 Adilia [facility] - POINT OF CARE ORDERABLES documented in this encounter Visit Diagnoses Diagnosis Acute URI- Primary Acute upper respiratory infections of unspecified site Acute pharyngitis, unspecified etiology documented in this encounter Care Teams Edge Kitter Relationship Specialty Start Date End Date Unknown, Provider PCP - General 10/04/16 documented as of this encounter
--- OUTSIDE RECORDS SUMMARY | 2024-11-06 23:36 | XMS_ITS | Encounter Summary ---
Author Organization [facility] Address [address] [place] [address] Care Team Providers Care Audograph Operator Name Role Phone Unknown, Provider Primary Care Provider Unavaila ble Reason for Visit * Reason Comments Sore Throat Encounter Details Date Type Department Care Team (Late st Contact Info) Description 12/10/2018 9:00 AM BRIM RAISER Office Visit [facility] AT [address] [address] Provider, [facility] Influenza A (Primary Dx); Strep pharyngitis Social History Tobacco Use Types Packs/Day Years Used Date Smoking Tobacco: Never Smokeless Tobacco: Never Sex and Gender Information Value Date Recorded Sex Assigned at Not on file Gender Identity Not on file Sexual Orientation Not on file documented as of this encounter Last Filed Vital Signs Vital Sign Reading Time Taken Comments Blood Pressure 128/80 12/10/2018 9:13 AM BRIM RAISER Pulse 99 12/10/2018 9:13 AM BRIM RAISER Temperature 37.1 ??C (98.8 ??F) 12/10/2018 9:13 AM CS T Respiratory Rate 16 12/10/2018 9:13 AM BRIM RAISER Oxygen Saturation 98% 12/10/2018 9:13 AM BRIM RAISER Inhaled Oxygen Concentration - - Weight 63.5 kg (140 lb) 12/10/2018 9:13 AM BRIM RAISER Height 160 cm (5' 3 ) 12/10/2018 9:13 AM BRIM RAISER Body Mass Index 24.8 12/10/2018 9:13 AM BRIM RAISER documented in this encounter Patient Instructions * Patient Instructions* Brigitte Paez APRN-OVERNIGHT CASHIER - 12/10/2018 9:23 AM BRIM RAISER Images from the original note were not included. Influenza FORM WORKER: Influenza (the flu) is an infection caused by the influenza virus. The flu is easily spread when aninfected person coughs, sneezes, or has close contact with others. You may be able to spread the flu to others for 1 week or longer after signs or symptoms appear. Common signs and symptoms include the following: ?? Fever and chills ?? Headaches, body aches, and muscle or joint pain ?? Cough, runny nose, and sore throat ?? Loss of appetite, nausea, vomiting, or diarrhea ?? Tiredness ?? Trouble breathing Call your local emergency number (911 in the ) if: ?? You have trouble breathing, and your lips look purple or blue. ?? You have a seizure. Call your doctor if: ?? You are dizzy, or you are urinating less or not at all. ?? You have a headache with a stiff neck, and you feel tired or confused. ?? You have new pain or pressure in your chest. ?? Your symptoms, such as shortness of breath, vomiting, or diarrhea, get worse. ?? Your symptoms, such as fever and coughing, seem to get better, but then get worse. ?? You have new muscle pain or weakness. ?? You have questions or concerns about your condition or care. Treatment for influenza may include any of the following: ?? Acetaminophen decreases pain and fever. It is available without a doctor's order. Ask how much to take and how often to take it. Follow directions. Read the labels of all other medicines you are using to see if they also contain acetaminophen, or ask your doctor or pharmacist. Acetaminophen can cause liver damage if not taken correctly. Do not use more than 4 grams (4,000 milligrams) total of acetaminophen in one day. ?? NSAIDs , such as ibuprofen, help decrease swelling, pain, and fever. This medicine is available with or without a doctor's order. NSAIDs can cause stomach bleeding or kidney problems in certain people. If you take blood thinner medicine, always ask your healthcare provider if NSAIDs are safe foryou. Always read the medicine label and follow directions. ?? Antivirals help fight a viral infection. Manage your symptoms: ?? Rest as much as you can to help you recover. ?? Drink liquids as directed to help prevent dehydration. Ask how much liquid to drink each day andwhich liquids are best for you. Prevent the spread of the flu: ?? Wash your hands often. Use soap and water. Wash your hands after you use the bathroom, change a child's diapers, or sneeze. Wash your hands before you prepare or eat food. Use gel hand cleanser that has 60% alcohol, when soap and water are not available. Do not touch your eyes, nose, or mouth unless you have washed your hands first. ?? Cover your mouth when you sneeze or cough. Cough into a tissue or the bend of your arm. If you use a tissue, throw it away immediately and wash your hands. ?? Clean shared items with a germ-killing lamp cleaner street light. Clean table surfaces, doorknobs, and light switches. Do not share towels, silverware, and dishes with people who are sick. Wash bed sheets, towels, silverware, and dishes with soap and water. ?? Wear a mask over your mouth and nose if you are sick. The face mask may help protect others frombecoming infected with the flu. Wear the mask when in common areas of your home or if you seek carewith a healthcare provider. ?? Stay away from others if you are sick. Stay at home until 24 hours after your fever and symptomsare gone. ?? Influenza vaccine helps prevent influenza (flu). Everyone older than 6 months should get a yearly influenza vaccine. Get the vaccine as soon as it is available, usually in July or August each year. Follow up with your healthcare provider as directed: Write down your questions so you remember to ask them during your visits. ?? Copyright [employer] 2018 Information is for End User's use only and may not be sold, redistributed or otherwise used for commercial purposes. All illustrations and images included in CareNotes?? are the copyrighted property of [employer], [employer]. or [employer] The above information is an grazing aide only. It is not intended as medical advice for individual conditions or treatments. Talk to your doctor, nurse or pharmacist before following any medical regimen to see if it is safe and effective for you. Strep Throat FORM WORKER: Strep throat is a throat infection caused by bacteria. It is easily spread from person to person. Common symptoms include the following: ?? Sore, red, and swollen throat ?? Fever and headache ?? Upset stomach, abdominal pain, or vomiting ?? White or yellow patches or blisters in the back of your throat ?? Tender, swollen lumps on the sides of your neck or jaw ?? Throat pain when you swallow Call 911 for any of the following: ?? You have trouble breathing. Seek care immediately if: ?? You have new symptoms like a bad headache, stiff neck, chest pain, or vomiting. ?? You are drooling because you cannot swallow your spit. Contact your healthcare provider if: ?? You have a fever. ?? You have a rash or ear pain. ?? You have green, yellow-brown, or bloody mucus when you cough or blow your nose. ?? You are unable to drink anything. ?? You have questions or concerns about your condition or care. Treatment for strep throat may include antibiotic medicine to treat your strep throat. You should feel better within 2 to 3 days after you start antibiotics. You may return to work or school 24 hoursafter you start antibiotics. Manage strep throat: ?? Use lozenges, ice, soft foods, or popsicles to soothe your throat. ?? Drink juice, milk shakes, or soup if your throat is too sore to eat solid food. Drinking liquidscan also help prevent dehydration. ?? Gargle with salt water. Mix ?? teaspoon salt in a glass of warm water and gargle. This may help reduce swelling in your throat. ?? Do not smoke. Nicotine and other chemicals in cigarettes and cigars can cause lung damage and make your symptoms worse. Ask your healthcare provider for information if you currently smoke and needhelp to quit. E-cigarettes or smokeless tobacco still contain nicotine. Talk to your healthcare provider before you use these products. Prevent the spread of strep throat: ?? Wash your hands often. Use soap and water. Wash your hands after you use the bathroom, change a child's diapers, or sneeze. Wash your hands before you prepare or eat food. ?? Do not share food or drinks. Replace your toothbrush after you have taken antibiotics for 24 hours. Follow up with your healthcare provider as directed: Write down your questions so you remember to ask them during your visits. ?? Copyright [employer] 2018 Information is for End User's use only and may not be sold, redistributed or otherwise used for commercial purposes. All illustrations and images included in CareNotes?? are the copyrighted property of [employer]. or [employer] The above information is an grazing aide only. It is not intended as medical advice for individual conditions or treatments. Talk to your doctor, nurse or pharmacist before following any medical regimen to see if it is safe and effective for you. RAISER documented in this encounter Progress Notes * Brigitte Paez APRN-CNP - 12/10/2018 9:12 AM CST Subjective: Allyssa Russell is a 28 y.o. female who presents for evaluation: Chief Complaint Patient presents with ??? Sore Throat Primary Care Physician is Provider Unknown. Symptoms include Sunday started feeling sick with Feverish (has not checked temp) chills, sore throat, cough, decreased appetite, diarrhea (once yesterday), light headed this am, ear pain and pressure R>L. 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 gradually worsening since that time. She is drinking moderate amounts of fluids. Evaluation to date: none. Treatment to date: thera flu, dayquil, nyquil No Known Allergies Outpatient Prescriptions Marked as Taking for the 12/10/18 encounter (Office Visit) with Provider, Yessenia Fontenot Medication Sig ??? penicillin v potassium (VEETIDS) 500 MG tablet Take 1 tablet by mouth 2 times daily for 10 days Past Medical History: Diagnosis Date ??? NEGATIVE PAST MEDICAL HISTORY - SEE PROBLEM LIST Social History Social History ??? Marital status: Single Spouse name: N/A ??? Number of children: N/A ??? Years of education: N/A Occupational History ??? Not on file. Social History Main Topics ??? Smoking status: Never Smoker ??? Smokeless tobacco: Never Used ??? Alcohol use Not on file ??? Drug use: Not on file ??? Sexual activity: Not on file Other Topics Concern ??? Not on file Social History Narrative Medications reviewed. Review of Systems Pertinent items are noted in HPI Constitutional: Positive for feverish, chills Eyes: Negative Ears, nose, mouth, and throat: Positive for sore throat, right > left ear pain pressure Respiratory: Positive for acute cough. Negative for shortness of breath or wheezing. Cardiovascular: Negative Gastrointestinal: decreased appetite, diarrhea. Negative for vomiting or abdominal pain. Hematologic/lymphatic: Negative Musculoskeletal:Negative Neurological: light headed this am for a short time when she got up Objective: BP 128/80 (BP SITE: LEFT ARM, BP POSITION: SITTING, BP CUFF SIZE: 11) Pulse 99 Temp 98.8 ??F (37.1 ??C) (Oral) Resp 16 Ht 1.6 m (5' 3 ) Wt 63.5 kg (140 lb) SpO2 98% BMI 24.8 kg/m2 Skin: Physical Exam Exam General appearance: alert, cooperative, no distress, oriented to person, place, and time, ill-appearing Head: normocephalic, without trauma Eyes: sclera and conjunctiva clear, EOMI and PERRLA, lids normal Ears: canals clear, tympanic membranes normal, hearing intact to voice Nose: nares open; no septal deviation is noted, nasal mucosa not inflamed, no maxillary tenderness Throat: lips, mucosa, and tongue normal; teeth and gums normal, moderate oropharyngeal erythema, tonsillar hypertrophy 1+, No exudates present, uvula is midline Neck: range of motion is intact, Nodes: mild, benign-appearing anterior cervical adenopathy,mildly tender to palpation Lungs: breath sounds normal and symmetric; no rales or wheezes, no cough noted during exam Heart: regular rhythm, normal S1 and S2, without murmurs, gallops or rubs Neurologic: mental status normal; alert and oriented X 3; Assessment: . Encounter Diagnoses Name Primary? Influenza A Yes ??? Strep pharyngitis Plan: Suggested symptomatic OTC remedies. Antibiotics per orders. RTC prn. Change toothbrush on Day 3 of antibiotics Warm salt water gargles PRN Educational material given on strep throat If you experience difficulty swallowing or drooling seek medical attention immediately Consider contagious until after 24hrs on antibiotics If symptoms persist on antibiotics or worsen at any time, follow up with a health care provider, clinic or emergency care Influenza ??? Supportive care is the focus of care with influenza-make sure to stay well- hydrated and treat symptoms with over the counter medications for symptom relief. ??? Take guaifenesin expectorants, i.e. Maximum Strength Mucinex, Robitussin, or store brand for chest congestion. ??? For cough, dextromethorphan (Delsym syrup, Robitussin cough capsules or store brand). Dextromethorphan is considered safe for and breast feeding women. ??? Antihistamine, i.e. Claritin, Zyrtec or Benadryl for nasal drainage, per package directions. ??? Increase oral fluids to at least 2 liters (2 quarts) of non-caffeinated, non-alcoholic beverages daily ??? Increase rest, monitor temperature ??? May alternate acetaminophen (Tylenol) and ibuprofen (Motrin or Advil) with food every 4-6 hoursfor fever, body aches, headache or sore throat. Do not exceed maximum daily dose per package instructions ??? May use hard candy, throat lozenges, Chloraseptic spray or warm salt water gargles to soothe throat ??? Activity as tolerated, Avoid crowds and large groups ??? Avoid spreading germs by washing hands frequently and covering mouth when coughing ??? People with influenza are contagious 1 day before symptoms begin and up to 7 days after gettingck Influenza Follow-up ??? Follow up with the clinic, primary care provider(Provider Unknown) or urgent care if symptoms become more severe. ??? If you begin to feel better, then feel significantly worse, see your primary care provider or go to urgent care / ER ??? Call 911 or have someone take you to ER/Urgent Care if any difficulty with breathing or shortness of breath, if you develop high fevers that do not respond to ibuprofen (Advil / Motrin) or acetaminophen (Tylenol) , if you have a hard time awakening or staying awake or become lethargic or confused, or if you develop new stiffness in your neck. ??? If you need to be excused from more than 3 days off from work, please follow-up with your PCP. Work note given Continue to follow up with Provider Unknown as directed. After Visit Summary reviewed with patient. The patient indicates understanding of these issues and agrees with the plan. Patient discharged to Home .Brigitte Paez APRN-WES 12/10/2018 9:32 AM Orders Placed This Encounter ??? INFLUENZA A+B - POINT OF CARE (AMB) ??? STREP A SCREEN ??? penicillin v potassium (VEETIDS) 500 MG tablet Sig: Take 1 tablet by mouth 2 times daily for 10 days Dispense: 20 tablet Refill: 0 Recent Results (from the past 24 hour(s)) INFLUENZA A+B - POINT OF CARE (AMB) Collection Time: 12/10/18 9:17 AM Result Value Ref Range Influenza A Antigen Rapid Positive (Abnormal) Negative Influenza B Antigen Rapid Negative Negative Influenza Internal Control positive NEGATIVE - POSITIVE Influenza Lot Number [id number] Influenza Expiration Date STREP A SCREEN Collection Time: 12/10/18 9:17 AM Result Value Ref Range Strep A Rapid POCT Positive (Abnormal) Negative Strep A Internal Control Present Lot # [id number] Expiration Date [id number] RAISER documented in this encounter Plan of Treatment Not on file documented as of this encounter Procedures Procedure Name Priority Date/Time Associated Diagnosis Comments STREP A SCREEN - POINT OF CARE (AMB) STL Routine 12/10/2018 9:17 AM BRIM RAISER Influenza A Strep pharyngitis INFLUENZA A+B - POINT OF CARE (AMB) Routine 12/10/2018 9:17 AM BRIM RAISER Influenza A Strep pharyngitis documented in this encounter Results * (ABNORMAL) STREP A SCREEN (12/10/2018 9:17 AM BRIM RAISER) Strep A Rapid POCT Positive(A) Negative Strep A Internal Control Present Lot # [id number] Expiration Date Throat ENTIRE THROAT (SURFACE REGION OF NECK) / Unknown 12/10/2018 9:17 AM BRIM RAISER Brigitte CORTE[facility] - POINT OF CA RE ORDERABLES * (ABNORMAL) INFLUENZA A+B - POINT OF CARE (AMB) (12/10/2018 9:17 AM BRIM RAISER) Influenza A Antigen Rapid Positive(A) Negative Influenza B Antigen Rapid Negative Negative Influenza Internal Control positive NEGATIVE - POSITIVE Influenza Lot Number [id number] Influenza Expiration Date [id number] Other NASOPHARYNGEAL SWAB / Unknown 12/10/2018 9:17 AM BRIM RAISER Brigitte Paez APRN-OVERNIGHT CASHIER LAB - POINT OF CA RE ORDERABLES documented in this encounter Visit Diagnoses Diagnosis Influenza A- Primary Strep pharyngitis Streptococcal sore throat documented in this encounter Care Teams Audograph Operator Relationship Specialty Start Date End Date Unknown, Provider PCP - General 10/04/16 documented as of this encounter
--- OUTSIDE RECORDS SUMMARY | 2024-11-06 23:36 | XMS_ITS | Referral Summary ---
Author Organization [facility] Address [address] [place] [address] Care Team Providers Care Youth Nutritional Monitor Name Role Phone Unknown, Provider Primary Care Provider Unavaila ble Source Comments [facility],non-owned Affiliates and Associated Physician Practices is amultiple site organization consisting of ambulatory clinics and hospital sitesin [place], [place], [place] and [place]. This disclosure is being madepursuant to the Care Everywhere program and may not contain all information available regarding this patient. Last updated 18.[employer] [facility] Allergies No known active allergies Medications * [...] 2 times daily 30 g 06/12/2020 Active Social History Tobacco Use Types Packs/Day Years [...] 06/12/2020 11:56 AM CDT Plan of Treatment Not on file Care Teams Youth Nutritional Monitor Relationship Specialty Start Date End Date Unknown, Provider PCP - General 10/04/16
--- OUTSIDE RECORDS SUMMARY | 2024-11-06 23:36 | XMS_ITS | Encounter Summary ---
Author Organization [facility] Address [address] [place] [address] Care Team Providers Care Hot Metal Car Operator Name Role Phone Unknown, Provider Primary Care Provider Unavaila ble Reason for Visit * Reason Comments Sore Throat Encounter Details Date Type Department Care Team (Late st Contact Info) Description 10/04/2016 6:20 PM HOOKER ON Office Visit [facility] AT [address] [address] Provider, Yessenia Exp [place] Strep throat (Primary Dx) Social History Tobacco Use Types Packs/Day Years Used Date Smoking Tobacco: Never Assessed Sex and Gender Information Value Date Recorded Sex Assigned at Not on file Gender Identity Not on file Sexual Orientation Not on file documented as of this encounter Last Filed Vital Signs Vital Sign Reading Time Taken Comments Blood Pressure 110/70 10/04/2016 6:39 PM HOOKER ON Pulse - - Temperature 37 ??C (98.6 ??F) 10/04/2016 6:39 PM HOOKER ON Respiratory Rate - - Oxygen Saturation - - Inhaled Oxygen Concentration - - Weight 63.5 kg (140 lb) 10/04/2016 6:39 PM HOOKER ON Height - - Body Mass Index - - documented in this encounter Patient Instructions * Patient Instructions* Shwetha Boothe APRN-CNP - 10/04/2016 6:37 PM HOOKER ON Consider yourself contagious untilll on antibiotics for 24 hours change toothbrush 2 -3 days after starting antibiotics Increase po fluid intake Can take ibuprfen or tylenol as directed ER ON documented in this encounter Progress Notes * Shwetha Boothe APRN-CNP - 10/04/2016 6:41 PM CST Office Visit, Established Patient, [id number] HISTORY: (1-3 elements) CC & HPI: Allyssa Russell is a 25 y.o. female established patient, here for: Chief Complaint Patient presents with ??? Sore Throat General The history is provided by the patient. This is a new problem. The current episode started more than 2 days ago. The symptoms are localized to the head, face, nose and mouth. I have reviewed the medications listed in the patient's chart. Review of Systems (1 required) Review of Systems Constitutional: Positive for malaise/fatigue. HENT: Positive for congestion, ear pain and sore throat. Respiratory: Negative. Cardiovascular: Negative. Gastrointestinal: Positive for nausea and vomiting. Neurological: Positive for weakness. PFSH, other pertinent history: No past medical history on file. I have reviewed the allergies listed in the patient's chart. EXAM (6 elements from any single system exam or 6 or more elements from a multisystem exam) BP 110/70 Temp 98.6 ??F Wt 63.5 kg (140 lb) FiO2: Physical Exam Constitutional: She is well-developed, well-nourished, and in no distress. HENT: Right Ear: Hearing, tympanic membrane, external ear and ear canal normal. Left Ear: Hearing, tympanic membrane, external ear and ear canal normal. Nose: Rhinorrhea present. Mouth/Throat: Oropharyngeal exudate, posterior oropharyngeal edema and posterior oropharyngeal erythema present. Cardiovascular: Normal rate, regular rhythm and normal heart sounds. Pulmonary/Chest: Effort normal and breath sounds normal. ASSESSMENT: 1. Strep throat PLAN: Orders Placed This Encounter ??? STREP A SCREEN ??? amoxicillin (AMOXIL) 500 MG capsule Sig: Take 2 Caps by mouth 2 times daily for 10 days Dispense: 40 Cap Refill: 0 Return to office in PRN. Patient instructed to call with any concerns or problems. ER ON documented in this encounter Plan of Treatment Not on file documented as of this encounter Procedures Procedure Name Priority Date/Time Associated Diagnosis Comments STREP A SCREEN - POINT OF CARE (AMB) STL Routine 10/04/2016 Strep throat documented in this encounter Results * (ABNORMAL) STREP A SCREEN (10/04/2016) Strep A Rapid POCT Positive(A) Negative Strep A Internal Control Present Lot # [id number] Expiration Date [id number] Throat ENTIRE THROAT (SURFACE REGION OF NECK) / Unknown 10/04/2016 Shwetha Boothe FILM EDITOR-AMERICAN STUDIES PROFESSOR LAB - POINT OF CARE ORDERABLES documented in this encounter Visit Diagnoses Diagnosis Strep throat- Primary Streptococcal sore throat documented in this encounter Care Teams Hot Metal Car Operator Relationship Specialty Start Date End Date Unknown, Provider PCP - General 10/04/16 documented as of this encounter
--- OUTSIDE RECORDS SUMMARY | 2024-11-06 23:36 | XMS_ITS | Data Portability ---
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 Plan of Treatment Reminders Order Date Submit Date Provider Last Modified By Organization Details Last Modified Time Details Appointments EST 10 2024 01:10P Shaggy MALCOLM MD Not available Not available Not available Lab None recorded. Referral None recorded. Procedures None recorded. Surgeries None recorded. Imaging None recorded. Medication Orders Kenalog 40 mg/mL suspensio n for injection 2023 024 [email or web address] Not available 09/05/2024 12:05:45 Kenalog 40 mg/mL suspensio n for injection 2023 024 [email or web address] Not available 10/06/2024 12:05:36 Patient TargetsNo targets recorded. Patient Instructions Encounter Date Encounter Id Patient Instructions Last Modified By Organization Details Last Modified Time 09/29/2024 [id number] smoking cessatio n counseling, greater than 3 minutes up to 10 minutes* [email or web address] Not available 10/27/2024 08:51:46 Reason for Referral None Reported. Results Created Date Observation Date Name Description Value Unit Range Abnormal Flag Note LastModifiedBy Organization Detail LastModifiedTime 07/01/20 24 06/30/2024 XR, wrist , 3 or more view [facility] [address] [place] [id number] [facility] REPORT Name: YANNA ROJAS Room #: : 1990 Accoun t #: [id number] Bed #: Age: 33 Years Patien t Type: Outpat ient Order Date/T kelly: 2023 01:30: 00 PM Sex: F Access ion#: Exam Descri ption: Exam Reason : [id number] XR WRIST 3V+ [id number] Dictat ed By: Jonny Cheung Physic chiara: JACQUIE MALCOLM Attend [facility] Physic chiara: JACQUIE MALCOLM y [facility] Physic chiara: UNKNOW N, EXAMIN ATION: Radiog raphs of the wrist CLINIC AL HISTOR Y: 33 years Female ,later al wrist pain radiat ing into the finger s for 6 months with no known injury TECHNI QUE: PA, latera l, obliqu e and scapho id of the left wrist. COMPAR ESTER: None FINDIN GS: There is no fractu re or disloc ation. There is no sub subcut aneous emphys eduin or retain ed radiod ense foreig n body. There is normal osseou s minera lizati on. The mid carpal row is mainta ined. The radioc arpal joint is within normal limits . The scapho lunate joint space is normal IMPRES JULISA: PAGE 1 OF 2 [facility] REPORT Name: YANNA ROJAS Room #: : 1990 Accwyatt t #: [id number] Bed #: Age: 33 Years Patien t Type: Outpat ient Order Date/T kelly: 2023 01:30: 00 PM Sex: F No acute osseou s abnorm ality is identi fied Electr onical ly signed by: Jonny Coronado [facility] 2023 04:34 PM CDT RP Workst ation: [id number] PAGE 2 OF 2 [facility] [address] [place] [address], [place], [address], 07/03/2024 13:43:54 Result Notes None recorded. Problems Name Problem SNOMED Code Status Onset Date Resolution Date Notes Provider Name and Address Organization Details Recorded Time depression 33994462 Active 2023 Ramonita Trevino [facility], [facility] 4 11:03:21 Joint pain 92974978 Active 2023 Ramonita rangel, [facility] 4 11:03:27 Tenosynovit is of right radial styloid 3553473827881 9100 Active 2023 Ramonita rangel, [facility] 4 11:03:59 Carpal tunnel syndrome of left wrist 6843018767082 02 [facility] 11:04[facility]13 Pain of left wrist 5925799965034 02 Active 2023 Ramonita rangel, [facility] 4 11:04:25 Pain of left hand 2841105525115 03 Active 2023 Ramonita rangel, [facility] 4 11:04:38 Pain in left thumb 5413624932365 100 Active 2023 Jacquie Malcolm MD [address] [place], [address], [place] [facility] 4 15:49:36 Problem Notes None recorded. Procedures Surgical History Date Name Laterality Status Provider Name and Address Organization Details Recorded Time 11/05/19 18 Cholecystectomy completed Ramonita Trevino [facility] 06/18/2024 11:09:34 Imaging Results Imaging Date Name Status LastModified by Organiz ation Details LastModified Time 06/30/2024 XR, wrist, 3 or more view completed [facility] [address] [place] [address], [address], 07/03/2024 13:43:54 Procedure Notes None recorded. Medical Equipment None Reported. Allergies Allergen ID Allergen Name Allergen Category Reaction Reaction Severity Criticality Documentation Date Start Date Code Code System Note Provider Name and Address Organization Details Recorded Time 329641 prednison e medicatio n dizziness nausea vomiting Not available Not available Not available Not available 06/18/2024 8640 [facility] 11:02:12 Medications Name Sig Start Date Stop Date Status Note LastModified by Organization Details LastModified Time amoxicill in 500 mg capsule TAKE 1 CAPSULE BY MOUTH EVERY 12 HOURS 06/18 completed Not Available Not Available Not Available Kenalog 40 mg/mL suspensio n for injection Take 1 mL by injectio n route. 2023 active 1ml Kenalog 40mg/ml with 1ml 1% Lidocain e injected into left Thumb Not Available Not Available Not Available Vitals Date Recorded Body height Body mass index (BMI) Body weight Heart rate Oxygen saturation Oxygen saturation in Arterial blood by Pulse oximetry Systolic blood pressure Diastolic blood pressure Provider Name and Address Organization Details Last Updated DateTime 4 160.02 cm 34.5 kg/m2 82718.5 1 g 73 /min 98 % 98 % 140 mm[Hg] 87 mm[Hg] Ramonita Trevino [facility] 15:22:12 Date Recorded Body height Body mass index (BMI) Body weight Heart rate Oxygen saturation Oxygen saturation in Arterial blood by Pulse oximetry Systolic blood pressure Diastolic blood pressure Provider Name and Address Organization Details Last Updated DateTime 4 160.02 cm 35.4 kg/m2 17418.4 7 g 72 /min 97 % 97 % 148 mm[Hg] 107 mm[Hg] Ramonita Trevino [facility] 14:36:49 Social History Question Answer Notes LastModified by Organizat ion Details LastModified Time Tobacco Smoking Status Never Smoker Ramonita Trevino [facility] 06/30/2024 15:20:58 Do You Or Have You Ever Used E-cigarettes Or Vape? Former User Of Electronic Cigarettes Information not available 09/29/2024 What Was The Date Of Your Most Recent Tobacco Screening? 09/29/2024 Information not available 09/05/2024 Has Tobacco Cessation Counseling Been Provided? Yes Information not available 09/05/2024 On What Date Was Tobacco Cessation Counseling Provided? 09/29/2024 Information not available 09/05/2024 Do You Or Have You Ever Used Any Other Forms Of Tobacco Or Nicotine? No Information not available 06/30/2024 How Many Years Have You Used E-cigarettes Or Vape? 2 Socially Or When Stressed Information not available 06/30/2024 Sex: Unknown Functional Status None recorded. Mental Status None recorded. Family History Relationship Description Onset Age of this Age Resolved Age Notes LastModified by Organization Details LastModified Time Father Diabetes mellitus [email or web address] Not available 2023 11:05:17 Maternal Grandfather Diabetes mellitus rhanegan Not available 2023 11:05:17 Paternal Grandfather Diabetes mellitus rhanegan Not available 2023 11:05:17 Paternal Grandfather Hypertensive disorder rhanegan Not available 2023 11:05:47 Paternal Grandfather Cerebrovascu lar accident rhanegan Not available 11:06:12 Maternal Grandmother Malignant neoplasm of skin rhanegan Not available 2023 11:06:45 Paternal Grandmother Malignant neoplasm of skin rhanegan Not available 2023 11:06:45 Paternal Aunt Malignant tumor of lung rhanegan Not available 2023 11:07:06 Medical History Condition Response CARPAL TUNNEL SYNDROME Y DEPRESSION (INCLUDING POST ) Y Gynecological HistoryNo gynecological history recorded. Obstetrics History GPAL:G 0 P 0 0 0 0 Past Encounters Encounter ID Performer Location Encounter Start Date Encounter Closed Date Diagnosis/Indication Diagnosis SNOMED-CT Code Diagnosis ICD10 Code [id number] Jacquie Malcolm MD [facility] [address] [address] 06/30/2024 14:36:01 06/30/2024 15:50:51 Pain in left thumb 6189326199 271693 M79.174 [id number] Jacquie Malcolm MD [facility] [place] [address] [address] 09/29/2024 14:21:32 09/29/2024 14:57:47 Pain in left thumb 0877447548 688946 M79.645 Electronic cigarette user 462268105 Z72.89 Body mass index 30+ - obesity 397956800 Z68.34 Health Concerns Section Related Observation LastModified by Organization Detai ls LastModified Time None Recorded Concern Status LastModified by Organization Details LastModified Time None Recorded Advance Directives Directive None Recorded Payers Encounter Date Sequence Insurance Name Policy Number Policy Bergeron Covered Member ID Bergeron Member ID Guarantor Name 06/30/2024 1 [facility] [id number] Allyssa Russell [id number] Allyssa Russell 09/29/2024 [employer] [id number] Allyssa Russell Notes Date Note Type Note Provider Name and Address Organization Details Recorded Time 06/30/2024 text/html patient is a couple years out now from a 1st extensor compartment on the left she was found to have extra tendons within the compartment. Patient is having pain again around the basilar thumb joint on the radial side of her left thumb and wrist area comes in for evaluation. 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 Jacquie Malcolm MD [address] [place], [address], [facility] 06/30/2024 16:38:27 09/29/2024 text/html Patient has recurrent pain left thumb CMC joint Jacquie Malcolm MD [address] [place], [address], [facility] 09/29/2024 17:44:35 OBGyn Episode No OBEpisode recorded.
== END 2024-10-30 17:46 | disposition home or self-care (01) ==
PROVIDERS: Emergency Medicine; Emergency Provider Emergency Medicine
DX: N93.9 Abnormal uterine and vaginal bleeding, unspecified (principal); F32.A Depression, unspecified
CPT/HCPCS: 36415; 76830; 76856; 80053; 81025; 84702; 85025; 85461; 85610; 85730; 86850; 86900; 86901; 96361; 96374; 96375; 99284; J2270; J2405; J7030